=== PATIENT | female | born 1945 | race Caucasian/White ===

== ENCOUNTER 2020-10-10 13:00 | Outpatient (RCR) | payer MEDICARE, OTHER, SELFPAY | END 2020-11-04 10:51 | disposition home or self-care (01) | LOC: HO.PTCHIC 13:00 | PROVIDERS: PCP Nurse Practitioner Family; Visit Provider Orthopaedic Surgery | DX: Z47.1 Aftercare following joint replacement surgery (principal); Z96.651 Presence of right artificial knee joint | CPT/HCPCS: 97110; 97162 ==

== ENCOUNTER 2023-08-29 11:24 | Outpatient (AMB) | payer MEDICARE, OTHER, SELFPAY ==
--- NOTE | 2023-08-29 11:32 | AM.OFFWIN_ITS ---
Intake Vital Signs 08/29/23 11:33 Height 5 ft 1 in Weight 201 lb BMI 38.0 BP 112/72 Blood Pressure Location Lt brachial Position Sitting Pulse 62 Pulse Source Pulse Oximeter Pulse Oximetry (%) 98 Oxygen Delivery Method Room Air Intake Visit Reasons: EP LFT red itchy spot (lobby) Intake Note: Patient here for left rash below the knee which has been red and itchy for about 3 weeks. Patient Tobacco Use Status: Former Tobacco user Allergies No Known Allergies Allergy (Verified 08/29/23 11:34) Do you need a note to return to daycare/school/sports/work: No HPI HPI Comments History of Present Illness Details 78 y/o female patient who presents to [facility] with c/o Rash anterior left knee x 3 weeks. Reports that rash is very itchy with some pain. Denies any recent changes to cosmetic products, detergent, soap or diet. PFSH Social History Patient Tobacco Use Status: Former Tobacco user Physical Exam Vital Signs: Last Vital Signs Pulse 62 08/29/23 11:33 BP 112/72 08/29/23 11:33 Pulse Ox 98 08/29/23 11:33 Oxygen Delivery Method Room Air 08/29/23 11:33 BMI result Body Mass Index 38.0 Const General: comfortable and no acute distress Nutritional Appearance: obese Skin General skin exam: dry skin and erythema Rashes: rashes noted (plaque dry skin with red boarders left anterior knee) Assessment & Plan Assessment & Plan (1) Rash: Code(s): R21 - Rash and other nonspecific skin eruption Plan: DDX's: Eczema vs Psoriasis Will Start with high intense steroid cream for 2 weeks, then off F/U with Derm and PCP if not improved. Medications: New clobetasol 0.05% 1 appl topical BID 2 weeks 30 grams 0RF R21 - Rash and other nonspecific skin eruption Coding Level of Care Code Est Pt Level 3 (20732) Diagnoses Rash R21 Time Spent (min) 15
[2023-08-29 11:33] VITALS: BP 112/72; PULSE 62; O2SAT 98; BMI 38.0
== END 2023-08-29 14:22 | disposition home or self-care (01) ==
PROVIDERS: PCP Registered Nurse; Visit Provider Nurse Practitioner Family
DX: R21 Rash and other nonspecific skin eruption (principal)
CPT/HCPCS: 99213

== ENCOUNTER 2023-10-09 10:00 | Outpatient (RCR) | payer MEDICARE, OTHER, SELFPAY | END 2024-02-19 09:43 | disposition home or self-care (01) | LOC: HO.PTCHIC 10:00 | PROVIDERS: PCP Nurse Practitioner Family; Visit Provider Nurse Practitioner Family | DX: Z96.652 Presence of left artificial knee joint (principal) | CPT/HCPCS: 97110; 97116; 97162 ==

== ENCOUNTER 2023-11-14 12:37 | Outpatient (AMB) | payer MEDICARE, OTHER, SELFPAY ==
[2023-11-14 12:41] VITALS: BP 120/60; PULSE 74; TEMP 36.5; O2SAT 100; BMI 39.1
--- NOTE | 2023-11-14 12:41 | AM.OFFWIN_ITS ---
Intake Vital Signs 11/14/23 12:41 Height 5 ft 1 in Weight 207 lb BMI 39.1 BP 120/60 Blood Pressure Location Lt brachial Position Sitting Pulse 74 Pulse Source Pulse Oximeter Temp 97.7 F Temp Source Temporal Artery Scan Pulse Oximetry (%) 100 Oxygen Delivery Method Room Air Intake Visit Reasons: EST/ ear pain (lobby) Intake Note: pt is here today for ear pain started 1 month ago Patient Tobacco Use Status: Former Tobacco user Allergies No Known Allergies Allergy (Verified 11/14/23 12:47) Do you need a note to return to daycare/school/sports/work: No HPI HPI Comments History of Present Illness Details She presents with R ear pain Ongoing intermittent x 1 month When head is down on L side she gets some dizziness which improves when she lays on R She denies drainage to ear Pain now is 09/23 No fever or chills + congestion and nasal drip PFSH Social History Patient Tobacco Use Status: Former Tobacco user Review of Systems Const Denies chills, Denies fatigue, Denies fever(s) and Denies headache(s) Eyes Denies blurry vision ENT Reports dizziness, Denies ear discharge, Reports otalgia, Denies headache(s), Reports nasal congestion, Reports nasal discharge and Denies sore throat Card Denies chest pain and Denies syncope Resp Denies cough Neuro Reports dizziness, Denies syncope, Denies headache(s) and Denies paresthesias Endo Denies fatigue Physical Exam Vital Signs: Last Vital Signs Temp 97.7 F 11/14/23 12:41 Pulse 74 11/14/23 12:41 BP 120/60 11/14/23 12:41 Pulse Ox 100 11/14/23 12:41 Oxygen Delivery Method Room Air 11/14/23 12:41 BMI result Body Mass Index 39.1 General: Non-toxic, NAD. Speaking full sentences. Skin: Warm dry throughout Eye: EOMI HENT: + cerumen in R canal. Still able to see TM. L canal clear. TM non- erythematous, non-bulging. Slight fluid behind R TM. No TM perforation or hemotympanum noted. No mastoid tenderness Respiratory: No respiratory distress MSK: Full ROM extremities. Neurology: A/O. No aphasia or facial droop. Gait without abnormality Psych: Good mood and affect Office Procedures Cerumen Removal From which ear canal was the cerumen removed: right Removal: cerumen loop/spoon Notes: patient tolerated procedure well, no complications and ear canal clear 74812-[id number] Wax Removal by Spoon/Curette Assessment & Plan Assessment & Plan (1) Impacted cerumen of right ear: Code(s): H61.21 - Impacted cerumen, right ear Plan: see procedure Pt tolerated well and feeling better (2) Eustachian tube dysfunction: Code(s): H69.90 - Unspecified Eustachian tube disorder, unspecified ear Qualifiers: Laterality: right Qualified Code(s): H69.91 - Unspecified Eustachian tube disorder, right ear Plan: Patient seen and evaluated. nasal steroid F/U with PCP Patient gave verbal understanding and had no additional questions or concerns at time of discharge All questions answered Medications: New ipratropium bromide administer into each nostril 2 sprays intranasal TID 15 mL 0RF Coding Level of Care Code Est Pt Level 3 (04683) Diagnoses Impacted cerumen of right ear H61.21 Dysfunction of right eustachian tube H69.91 Laterality: right CPT Codes Office Procedure - CPT: 91330-Uym Wax Removal by Spoon/Curette ([id number])
== END 2023-11-14 14:07 | disposition home or self-care (01) ==
PROVIDERS: PCP Registered Nurse; Visit Provider Physician Assistant
DX: H61.21 Impacted cerumen, right ear (principal); H69.91 Unspecified Eustachian tube disorder, right ear
CPT/HCPCS: 69210; 99213

== ENCOUNTER 2025-06-01 08:28 | Outpatient (AMB) | payer MEDICARE, OTHER, SELFPAY ==
--- OUTSIDE RECORDS SUMMARY | 2025-05-30 23:59 | XMS_ITS | Continuity of Care Document ---
Author Organization [facility] Address [address] [place] [address] [address] [place] [address]- Care Team Providers Care Credit Historian Name Role Phone Dixie Shaw Primary Care Physician Encounter [facility] Date(s): 05/23/25 - 05/30/25 [facility] [address] [place] [address]- Attending Physician: Josefina Coats MD Referring Physician: Dixie Shaw Encounter Type: Office Visit Allergies, Adverse Reactions, Alerts Substance Criticality Severity Reaction Reaction Severity Status Latex rash Active Functional Status Functional Status Assessment Assessment Assessment Component Result Effecti ve Date Disability status [CUBS] I'm Thriving - no identified disability 05/23/25 Because of a physica l, mental, or emotional condition, do you have difficulty doing errands alone such as visiting a physician's office or shopping No 05/23/25 Are you deaf, or do you have serious difficulty hearing No 05/23/25 Difficulty communica ting in usual language No 05/23/25 Are you blind, or do you have serious difficulty seeing, even when wearing glasses No 05/23/25 Do you have serious difficulty walking or climbing stairs No 05/23/25 Do you need any angelica tional assistance or accommodations during your visit No 05/23/25 Do you have difficul ty dressing or bathing No 05/23/25 Difficulty Reading O r Writing No 05/23/25 Because of a physica l, mental, or emotional condition, do you have serious difficulty concentrating, remembering, or making decisions No 05/23/25 Immunizations Given and Recorded Vaccine Date Status Refusal Reason Zoster Vaccine Live 1 03/16/13 Given influenza virus vaccine, inactivated 2 02/10/12 Gi kevin influenza virus vaccine, inactivated 04/15/08 Give n pneumococcal 23-valent vaccine 3 02/10/12 Given FluLaval (oldterm) 05/14/10 Given Tet/Diphth/Acel, Pertussis (oldterm) 04/15/08 Give n 1Result Comment: [06/04/2013] Received at [facility] 2Admin Note: VIS Given Flulaval 3Admin Note: VIS GIVEN Medications acetaminophen 325 mg oral tablet 650 mg, By Mouth, Every 6 hours, may take OTC not to exceed 3000 mg/day, Refills 0, Maintenance, 06/05/23 7:03:00 AM EST, Partial fill upon patient request if the prescription is for a schedule II opioid drug. Start Date: 06/05/23 Status: Ordered Medication Dispense Status: Completed Total Allowed Fills: 1 Fills Dispensed: 0 amLODIPine 2.5 mg oral tablet 10 mg, By Mouth, Daily at bedtime, # 30 tablet, Refills 0, Maintenance, 04/18/20 8:10:00 AM EST Start Date: 04/18/20 Status: Ordered Medication Dispense Status: Completed Quantity: 30.0 Unit: tablet Total Allowed Fills: 1 Fills Dispensed: 0 Aspirin Tablet 325 mg, By Mouth, 2 times a day, Refills 0, Maintenance, 04/19/20 7:10:00 AM EST Start Date: 04/19/20 Status: Ordered Medication Dispense Status: Completed Total Allowed Fills: 1 Fills Dispensed: 0 Colace Capsule 100 mg, 1, capsule, By Mouth, 2 times a day, PRN, Refills 0, Maintenance, as needed for constipation, 04/19/20 7:10:00 AM EST Start Date: 04/19/20 Status: Ordered Medication Dispense Status: Completed Total Allowed Fills: 1 Fills Dispensed: 0 hydrochlorothiazide 25 mg oral tablet 1 tablet = 25 mg, By Mouth, Daily, # 90 tablet, 3 Refills, Maintenance, 02/18/13 1:26:26 PM EDT, Tablet, [facility]/pharmacy #[id number] Start Date: 02/18/13 Stop Date: 02/13/14 Status: Ordered Medication Dispense Status: Completed Quantity: 90.0 Unit: tablet Total Allowed Fills: 4 Fills Dispensed: 0 levothyroxine 0.05 mg oral tablet 1 tablet = 0.05 mg, By Mouth, Daily, # 90 tablet, 3 Refills, Maintenance, 08/29/13 9:59:00 AM EDT, [facility]/pharmacy #[id number] Start Date: 08/29/13 Stop Date: 08/24/14 Status: Ordered Medication Dispense Status: Completed Quantity: 90.0 Unit: tablet Total Allowed Fills: 4 Fills Dispensed: 0 lisinopril 20 mg oral tablet 1 tablet = 20 mg, By Mouth, Daily, for 90 days, # 90 tablet, 3 Refills, Hard Stop 11/09/15 1:35:08 PM EDT, 11/14/14 1:35:08 PM EDT, Tablet, [facility]/pharmacy #[id number] Start Date: 11/14/14 Stop Date: 11/09/15 Status: Ordered Medication Dispense Status: Completed Quantity: 90.0 Unit: tablet Total Allowed Fills: 4 Fills Dispensed: 0 pantoprazole 40 mg oral delayed release tablet = 40 mg, By Mouth, Daily, 0 Refills, Maintenance, 06/05/23 7:03:00 AM EST, [facility] Tablet Start Date: 06/05/23 Status: Ordered Medication Dispense Status: Completed Total Allowed Fills: 1 Fills Dispensed: 0 Problem List Condition Confirmation Course Effective Dates Status H ealth Status Informant Obesity (BMI 30-39.9) Confirmed Active Cataract Confirmed Active Chronic kidney disease Confirmed Active Childhood Thymus irradiation Confirmed Active H/O thyroid nodule Confirmed Active Hypertension Confirmed Active Hypothyroid Confirmed Active Impaired glucose tolerance 1 Confirmed Active Osteoarthritis of knee Confirmed Active PONV (postoperative nausea and vomiting) Confirmed Active Rosacea Confirmed Active Urinary incontinence Confirmed Active 1Past hemoglobin A1c was 5.7. On review of outside list of diagnoses that is imported she is reported as having diabetes, accuracy of this is indeterminate and she does not specifically endorse this. She reports she had lab work fairly recently and A1c was 5.7. We have obtained lab work today Vital Signs Most recent to oldest [Reference Range]: 1 Height 159 cm (05/23/25 8:24 AM) Weight 68.6 kg (05/23/25 8:24 AM) Pulse Rate [55-90 bpm] 74 bpm (05/23/25 8:24 AM) Body Mass Index [18.5-24.99 kg/m2] 27.14 kg/m2 *H* (05/23/25 8:24 AM) Blood Pressure [90-138/55-84 mm Hg] 131/ 73mm Hg (05/23/25 8:24 AM) Temperature [96.8-100.4 DegF] 97.8 DegF (05/23/25 8:24 AM) Blood pressure sites Arm, left (05/23/25 8:24 AM) Temperature Route Temporal (05/23/25 8:24 AM) Weight Obtained Via Standing scale (05/23/25 8:24 AM) Social History Social History Type Response Smoking Status Former smoker, quit more than 30 days ago entered on: 11/26/24 Sex Sex Representation Female (finding) Patient Care team information Care Team Personnel Name: Dixie Shaw Position: Reference Physician Member Role: PCP Address: [address] [place] [address] Internal Medicine [place], [place] [address] Telecom: Name: Brock Jaiems RN Position: S RN Member Role: Primary Care Nurse Name: Christiane Byrd RN Position: S RN Member Role: Primary Care Nurse Name: Vickie Lorenz RN Position: Raul PRUETT RN Member Role: Primary Care Nurse Name: Grady Pack RN Position: S RN Member Role: Primary Care Nurse Name: Flynn Mcmullen RN Position: S RN Member Role: Primary Care Nurse Care Team Related Persons Name: RADHA IZQUIERDO Insurance Providers Guarantor name: JAYDA IZQUIERDO Health Plan Information #: 1 Payer: MEDICARE B Payer Identifier: NA Member Number: [id number] Group Number: NA Subscriber Identifier: [id number] Relationship to Subscriber: self Coverage Type: NA Coverage Verification Date: NA Telecom: NA Address: Health Plan Information #: 2 Payer: ELIN MANTILLAIRENE LUIS Payer Identifier: NA Member Number: [id number] Group Number: NA Subscriber Identifier: [id number] Relationship to Subscriber: self Coverage Type: Medicare Other Coverage Verification Date: NA Telecom: NA Address:
--- OUTSIDE RECORDS SUMMARY | 2025-06-01 08:39 | XMS_ITS | Encounter Summary ---
Author Organization [facility] Address [address] [place] [address] Phone Care Team Providers Care Shift Commander Name Role Phone Rafiq Castle MD Primary Care Provider [phone] Natalie Palacio MD Unavailable [phone] Rafiq Castle MD Unavailable [phone] Scott Colón MD Unavailable [phone] Nneka Lay RECEIVING SPECIALIST Unavailable [phone] Heaven Roth RECEIVING SPECIALIST Unavailable [phone] Samian Reveles MD Unavailable [phone] Heaven Roth RECEIVING SPECIALIST Primary Care Provider Rafiq Castle MD Unavailable [phone] Rafiq Castle MD Unavailable [phone] Rafiq Castle MD Unavailable [phone] Rafiq Castle MD Unavailable [phone] Stacia Rodriguez HAND SANDER Primary Care Provider Dixie Ballard PA-C Primary Care Provider [phone] Encounter Details Date Type Department Care Team (Late st Contact Info) Description 04/05/2017 Ancillary Orders [facility] [address] [place] [address] Scott Colón MD [address], [address] [place] [address] Social History Tobacco Use Types Packs/Day Years Used Date Smoking Tobacco: Never Assessed Comments Unknown Sex and Gender Information Value Date Recorded Sex Assigned at Female 07/16/2019 8:53 AM EST Legal Sex Female 10:07 PM EDT Gender Identity Female 07/16/2019 8:53 AM EST Sexual Orientation Straight 07/16/2019 8: 53 AM EST documented as of this encounter Plan of Treatment Upcoming Encounters Date Type Department Care Team (Late st Contact Info) Description 06/14/2025 8:30 AM EST Procedure visit [facility] [address] [place] [address] Roro Sifuentes MD [address] [place] [address] Orthopedics & Sports Medicine, [place] [address] 07/11/2025 10:00 AM EST Office Visit [facility] [address] [place] [address] Jody Pollard PA-C [address] [place] [address] Orthopedics & Sports Medicine, [place] [address] [email or web address] 09/01/2025 11:20 AM EDT Office Visit [facility] [address] [place] [address] Dixie Ballard PA-C [address] [place] [address] 10/09/2025 9:15 AM EDT Appointment [facility] [address] [address] Dixie Ballard PA-C [address] [place] [address] documented as of this encounter Visit Diagnoses Not on filedocumented in this encounter Additional Health Concerns Infection Onset Date Last Indicated Resolved Time CoV-Exposed Comment:Recent close contact documented in the COVID-19 PCR/PRO order 09/18/2020 09/20/2020 10/03/2020 1:23 AM E DT CoV-Risk 03/13/2021 03/14/2021 03/23/2021 1:26 AM EDT documented as of this encounter Care Teams Shift Commander Relationship Specialty Start Date End Date Rafiq Castle MD [address] [place] [address] PCP - General 04/03/17 05/11/17 Heaven Roth NP [address] [place] [address] Orthopedics & Sports Medicine, [place] [address] PCP - General 05/12/17 08/19/23 Stacia Rodriguez FNP [address] [place] [address] [email or web address] PCP - General Nurse Practitioner 08/20/23 08/09/24 Dixie Ballard PA-C [address] [place] [address] PCP - General Physician Tech Ed Teacher 08/10/24 Natalie Palacio MD [address] [place] [address] Historical LMR Provider 04/03/17 12/29/19 Rafiq Catsle MD [address] [place] [address] Historical LMR Provider 04/03/17 12/29/19 Scott Colón MD [address], [address] [place] [address] Historical LMR Provider 04/03/17 12/29/19 Nneka Lay, PRICILLA [address] [facility] [address] [place] [address] Historical LMR Provider 04/03/17 12/29/19 Heaven Roth NP [address] [facility] [address] [place] [address] Historical LMR Provider 04/03/17 12/29/19 Samina Reveles MD [address] [place] [address] Orthopedics & Sports Medicine, [place] [address] Historical LMR Provider 04/03/17 12/29/19 Rafiq Castle MD [address] [place] [address] Insurance Assigned Provider 09/13/17 07/04/18 Rafiq Castle MD [address] [place] [address] Insurance Assigned Provider 09/26/18 10/17/18 Rafiq Castle MD [address] [place] [address] [email or web address] Insurance Assigned Provider 09/22/19 06/23/21 Rafiq Castle MD 40 [place] [address] Insurance Assigned Provider 09/20/23 06/21/24 documented as of this encounter Additional Source Comments The information contained in this document represents components of the legal health record. It is not the complete legal health record.[facility]
--- OUTSIDE RECORDS SUMMARY | 2025-06-01 08:39 | XMS_ITS | Encounter Summary ---
Author Organization [facility] Address [address] [place] [address] Phone Care Team Providers Care Street Photographer Name Role Phone Heaven Roth NP Primary Care Provider [phone] Rafiq Castle MD Unavailable [phone] Stacia RodriguezP Primary Care Provider [phone] Dixie Ballard PA-C Primary Care Provider [phone] Encounter Details Date Type Department Care Team (Late st Contact Info) Description 09/27/2022 Procedure Pass [facility] - [address] [place] [address] Social History Tobacco Use Types Packs/Day Years Used Date Smoking Tobacco: Former Cigarettes 0.5 20 1 06/16/1983 - 04/16/2004 Smokeless Tobacco: Never Alcohol Use Standard Drinks/Week Comments Yes 0 (1 standard drink = 0.6 oz pur e alcohol) 1-2 drinks, monthly or less Comments No Sex and Gender Information Value Date Recorded Sex Assigned at Female 07/16/2019 8:53 AM EST Legal Sex Female 10:07 PM EDT Gender Identity Female 07/16/2019 8:53 AM EST Sexual Orientation Straight 07/16/2019 8: 53 AM EST documented as of this encounter Plan of Treatment Upcoming Encounters Date Type Department Care Team (Late st Contact Info) Description 06/14/2025 8:30 AM EST Procedure visit [facility] [address] [place] [address] Roro Sifuentes MD [address] [facility] Orthopedics & Sports Medicine, [place] [address] 07/11/2025 10:00 AM EST Office Visit [facility] [address] [place] [address] Jody Pollard PA-C [address] [place] [address] Orthopedics & Sports Medicine, [place] [address] [email or web address] 09/01/2025 11:20 AM EDT Office Visit [facility] [address] [place] [address] Dixie Ballard PA-C 40 [place] [address] 10/09/2025 9:15 AM EDT Appointment [facility], Bone [address] [address] Dixie Ballard PA-C [address] [place] [address] documented as of this encounter Visit Diagnoses Not on filedocumented in this encounter Additional Health Concerns Assessment Noted Time PHQ-2 Depression Total Score: 2 04/29/20 22 9:25 PM EST documented as of this encounter Care Teams Street Photographer Relationship Specialty Start Date End Date Heaven Roth NP PCP - General 05/12/17 08/19/23 Stacia Rodriguez FNP [address] [address] PCP - General Nurse Practitioner 08/20/23 08/09/24 Dixie Ballard PA-C [address] [place] [address] PCP - General Physician Video Library Assistant 08/10/24 Rafiq Castle MD [address] [place] [address] [email or web address] Insurance Assigned Provider 09/20/23 06/21/24 documented as of this encounter Additional Source Comments The information contained in this document represents components of the legal health record. It is not the complete legal health record.[facility]
--- OUTSIDE RECORDS SUMMARY | 2025-06-01 08:39 | XMS_ITS | Encounter Summary ---
Author Organization [facility] Address [address] [place] [address] [place] [address] Phone Care Team Providers Care Division Service Manager Name Role Phone Natalie Palacio MD Unavailable Rafiq Castle MD Unavailable Scott Colón MD Unavailable [phone] Nneka Lay MANUFACTURING SUPERVISOR 2ND SHIFT Unavailable Heaven Roth MANUFACTURING SUPERVISOR 2ND SHIFT Unavailable [phone] Samina Reveles MD Unavailable Heaven Roth MANUFACTURING SUPERVISOR 2ND SHIFT Primary Care Provider Rafiq Castle MD Unavailable [phone] Rafiq Castle MD Unavailable [phone] Rafiq Castle MD Unavailable [phone] Rafiq Castle MD Unavailable [phone] Stacia Rodriguez CAREER COORDINATOR Primary Care Provider Dixie Ballard PA-C Primary Care Provider Encounter Details Date Type Department Care Team (Late st Contact Info) Description 06/23/2017 Ancillary Orders [facility] [address] [place] [address] Heaven Roth, MANUFACTURING SUPERVISOR 2ND SHIFT [address] [facility] [address] [place] [address] Breast screening Social History Tobacco Use Types Packs/Day Years Used Date Smoking Tobacco: Former Cigarettes 0.5 20 1 06/16/1983 - 04/16/2004 Smokeless Tobacco: Never Alcohol Use Standard Drinks/Week Comments Yes 0 (1 standard drink = 0.6 oz pur e alcohol) rarely Comments Unknown Sex and Gender Information Value [...] Description 06/14/2025 8:30 AM EST Procedure visit [facility] [address] [place] [address] Roro Sifuentes MD [address] [place] [address] Orthopedics & Sports Medicine, [place] [address] 07/11/2025 10:00 AM EST Office Visit [facility] [address] [address] Jody Pollard PA-C [address] [place] [address] Orthopedics & Sports Medicine, [place] [address] [email or web address] 09/01/2025 11:20 AM EDT Office Visit [facility] [address] [place] [address] Dixie Ballard PA-C [address] [place] [address] 10/09/2025 9:15 AM EDT Appointment [facility], Bone Density - [address] [address] Dixie Ballard PA-C [address] [place] [address] [email or web address] documented as of this encounter Results * BI MAMMOGRAM SCREENING WITH TOMOSYNTHESIS WITH CAD (BILATERAL) (07/17/2017 9:41 AM EST) Anatomical Region Laterality Modality Breast Left, Breast Right, Breast Bilateral Bila teral Mammography 07/17/2017 12:3 8 PM EST Impressions 07/17/2017 12:48 PM EST No mammographic signs of malignancy. Annual screening is recommended. BI-RADS CATEGORY: 2 - Benign finding. DENSITY: There are scattered fibroglandular densities. POS - CDHMAMA Narrative 07/17/2017 12:48 PM EST Bilateral mammography is performed in conjunction with computed aided detection. 3-D tomography along with 2-D C view imaging was also performed. Comparison made to previous dated as far back as 04/17/2011 and as recent as 06/03/2016. No suspicious masses, areas of architectural distortion or suspicious microcalcifications. Scattered bilateral microcalcifications appear stable. These include bilateral benign secretory calcifications. Procedure Note Darell Kennedy MD - 07/17/2017 Bilateral mammography is performed in conjunction with computed aideddetection. 3-D tomography along with 2-D C view imaging was alsoperformed. Comparison made to previous dated as far back as 04/17/2011 andas recent as 06/03/2016. No suspicious masses, areas of architectural distortion or suspiciousmicrocalcifications. Scattered bilateral microcalcifications appearstable. These include bilateral benign secretory calcifications. IMPRESSION: No mammographic signs of malignancy. Annual screening is recommended. BI-RADS CATEGORY: 2 - Benign finding. DENSITY: There are scattered fibroglandular densities. POS - CDHMAMA us Heaven Roth NP IMG MG EXAMS Final Result documented in this encounter Visit Diagnoses Diagnosis Breast screening Breast screening, unspecified Breast screening Breast screening, unspecified documented in this encounter Additional Health Concerns Infection Onset Date Last Indicated Resolved Time CoV-Exposed Comment:Recent close contact documented in the COVID-19 PCR/PRO order 09/18/2020 09/20/2020 10/03/2020 1:23 AM E DT CoV-Risk 03/13/2021 03/14/2021 03/23/2021 1:26 AM EDT Assessment Noted Time PHQ-2 Depression Total Score: 0 05/15/20 8:41 AM EST documented as of this encounter Care Teams Division Service Manager Relationship Specialty Start Date End Date Heaven Roth, MANUFACTURING SUPERVISOR 2ND SHIFT [address] [place] [address] Orth[facility]ics [facility] Sports Medicine, [place] [address] PCP - General 05/12/17 08/19/23 Stacia Rodriguez FNP 15 [facility] [address] [place] [address] PCP - General Nurse Practitioner 08/20/23 08/09/24 Dixie Ballard PA-C [address] [place] [address] PCP - General Physician Home Delivery Driver 08/10/24 Natalie Palacio MD [address] [place] [address] Historical LMR Provider 04/03/17 12/29/19 Rafiq Castle MD [address] [place] [address] Historical LMR Provider 04/03/17 12/29/19 Scott Colón MD [address] [place] [address], [address] [place] [address] Historical LMR Provider 04/03/17 12/29/19 Nneka Lay NP [address] [place] [address] [address] [place] [address] Historical LMR Provider 04/03/17 12/29/19 Heaven Roth NP [address] [place] [address] [address] [place] [address] Historical LMR Provider 04/03/17 12/29/19 Samina Reveles MD [address] [place] [address] Orthopedics & Sports Medicine, [place] [address] Historical LMR Provider 04/03/17 12/29/19 Rafiq Castle MD [address] [place] [address] Insurance Assigned Provider 09/13/17 07/04/18 Rafiq Castle MD [address] [place] [address] Insurance Assigned Provider 09/26/18 10/17/18 Rafiq Castle MD [address] [place] [address] Insurance Assigned Provider 09/22/19 06/23/21 Rafiq Castle MD [address] [place] [address] [email or web address] Insurance Assigned Provider 09/20/23 06/21/24 documented as of this encounter Additional Source Comments The information contained in this document represents components of the legal health record. It is not the complete legal health record.[facility]
--- OUTSIDE RECORDS SUMMARY | 2025-06-01 08:39 | XMS_ITS | Encounter Summary ---
Author Organization [facility] Address [address] [place] [address] Phone Care Team Providers Care Forest Ecology Professor Name Role Phone Rafiq Castle MD Primary Care Provider [phone] Natalie Palacio MD Unavailable [phone] Rafiq Castle MD Unavailable [phone] Scott Colón MD Unavailable [phone] Nneka Lay INSERTING PRESS OPERATOR Unavailable [phone] Heaven Roth INSERTING PRESS OPERATOR Unavailable [phone] Samina Reveles MD Unavailable [phone] Heaven Roth INSERTING PRESS OPERATOR Primary Care Provider [phone] Rafiq Castle MD Unavailable [phone] Rafiq Castle MD Unavailable [phone] Rafiq Castle MD Unavailable [phone] Rafiq Castle MD Unavailable [phone] Stacia Rodriguez BUSINESS PROJECT ANALYST Primary Care Provider [phone] Dixie Ballard PA-C Primary Care Provider [phone] Encounter Details Date Type Department Care Team (Latest Contact Info) Description 04/05/2017 Ancillary Orders [facility] [address] [place], [place] [id number] Scott Colón MD 22 [facility], [address] [place] [address] [email or web address] Varicose veins of both lower extremities with complications Social History Tobacco Use Types Packs/Day Years [...] Description 06/14/2025 8:30 AM EST Procedure visit [facility] [address] [place] [address] Roro Sifuentes MD [address] [place] [address] Orthopedics & Sports Medicine, [place] [address] 07/11/2025 10:00 AM EST Office Visit [facility] [address] [address] Jody Pollard PA-C [address] [place] [address] Orthopedics & Sports Medicine, [place] [address] [email or web address] 09/01/2025 11:20 AM EDT Office Visit [facility] 40 [place] [address] Dixie Ballard PA-C [address] [place] [address] 10/09/2025 9:15 AM EDT Appointment [facility], Bone Density - [address] [address] Dixie Ballard PA-C [address] [place] [address] [email or web address] documented as of this encounter Results * US Lower Extremity Veins Reflux Evaluation (Bilateral) (06/26/2017 12:00 PM EST) Anatomical Region Laterality Modality Ultrasound Narrative 06/27/2017 3:10 PM EST See scanned report. us Scott Colón MD CV US VASCULAR Final Resul t documented in this encounter Visit Diagnoses Diagnosis Varicose veins of both lower extremities with complications documented in this encounter Additional Health Concerns Infection Onset Date Last Indicated Resolved Time CoV-Exposed Comment:Recent close contact documented in the COVID-19 PCR/PRO order 09/18/2020 09/20/2020 10/03/2020 1:23 AM E DT CoV-Risk 03/13/2021 03/14/2021 03/23/2021 1:26 AM EDT documented as of this encounter Care Teams Forest Ecology Professor Relationship Specialty Start Date End Date Rafiq Castle MD [address] [place] [address] PCP - General 04/03/17 05/11/17 Heaven Roth INSERTING PRESS OPERATOR [address] [place] [address] Orthopedics & Sports Medicine, [place] [address] PCP - General 05/12/17 08/19/23 Stacia Rodriguez FNP [address] [address] PCP - General Nurse Practitioner 08/20/23 08/09/24 Dixie Ballard PA-C [address] [place] [address] PCP - General Physician Biomedical Instrument Technician 08/10/24 Natalie Palacio MD [address] [place] [address] Historical LMR Provider 04/03/17 12/29/19 Rafiq Castle MD [address] [place] [address] Historical LMR Provider 04/03/17 12/29/19 Scott Colón MD 22 [facility] 301 [place] [address] Historical LMR Provider 04/03/17 12/29/19 Nneka Lay NP [address] [place] [address] [address] [place] [address] Historical LMR Provider 04/03/17 12/29/19 Heaven Roth NP [address] [place] [address] 6 [place] [address] Historical LMR Provider 04/03/17 12/29/19 Samina Reveles MD [address] [place] [address] Orthopedics & Sports Medicine, [place] [address] Historical LMR Provider 04/03/17 12/29/19 Rafiq Castle MD [address] [place] [address] [email or web address] Insurance Assigned Provider 09/13/17 07/04/18 Rafiq Castle MD [address] [place] [address] [email or web address] Insurance Assigned Provider 09/26/18 10/17/18 Rafiq Castle MD [address] [place] [address] [email or web address] Insurance Assigned Provider 09/22/19 06/23/21 Rafiq Castle MD [address] [place] [address] Insurance Assigned Provider 09/20/23 06/21/24 documented as of this encounter Additional Source Comments The information contained in this document represents components of the legal health record. It is not the complete legal health record.[facility]
--- OUTSIDE RECORDS SUMMARY | 2025-06-01 08:39 | XMS_ITS | Encounter Summary ---
Author Organization [facility] Address [address] [facility] [address] [place] [address] Phone Care Team Providers Care Clamp Jig Assembler Name Role Phone Rafiq Castle MD Unavailable [phone] Stacia Rodriguez Primary Care Provider [phone] Dixie Ballard PA-C Primary Care Provider [phone] Encounter Details Date Type Department Care Team (Late st Contact Info) Description 02/18/2024 Procedure Pass [facility] - [address] [place] [address] Social History Tobacco Use Types Packs/Day Years Used Date Smoking Tobacco: Former Cigarettes 0.5 20 1 06/16/1983 - 04/16/2004 Smokeless Tobacco: Never Alcohol Use Standard Drinks/Week Comments Not Currently 0 (1 standard drink = 0.6 oz pur e alcohol) 1-2 drinks, monthly or less Child or Family Care Answer Date Record ed Do you have problems with on e of the following making it difficult for you to work, study, or receive health care? No 08/08/2023 Education Answer Date Recorded Are you interested in more education? Not on susie e 10/11/2022 Are you concerned about learning? Not on file 10/11/2022 No 10/11/2022 No 10/11/2022 Food Answer Date Recorded Within the past 6 months we worried whether our food would run out before we got money to buy more. Never True 08/08/2023 Within the past 6 months the food we bought just didn't last and we didn't have enough money to get more. Never True Residential Stability Answer Date Recor ded What is your housing situation today? I have anjali goldman 08/08/2023 How many times have you move d in the past 12 months? Zero (I did not move) 08/08/2023 Paying for Meds Answer Date Recorded Do you have trouble paying for medicines? No 08/08/2023 Paying Utility Bills Answer Date Record ed Do you have trouble paying your heating or elect ricity bill? No 08/08/2023 Transportation Answer Date Recorded Has the lack of transportati on kept you from medical appointments or from getting medications? No 08/08/2023 Digital Access Answer Date Recorded No 08/08/2023 Yes 08/08/2023 Do you have reliable internet access at home? Ye s 08/08/2023 Do you have a device (e.g., phone, tablet, computer) with a working camera? Yes 08/08/2023 Comments No Sex and Gender Information Value [...] Description 06/14/2025 8:30 AM EST Procedure visit [facility] [address] [place] [address] Roro Sifuentes MD [address] [place] [address] Orthopedics & Sports Medicine, [place] [address] 07/11/2025 10:00 AM EST Office Visit [facility] [address] [place] [address] Jody Pollard PA-C [address] [place] [address] Orthopedics & Sports Medicine, [place] [address] [email or web address] 09/01/2025 11:20 AM EDT Office Visit [facility] 40 [place], [place] [phone] Dixie Ballard PA-C 40 [place] [address] 10/09/2025 9:15 AM EDT Appointment [facility], Bone Density [address] [address] Dixie Ballard PA-C 40 [place] [address] documented as of this encounter Visit Diagnoses Not on filedocumented in this encounter Additional Health Concerns Assessment Noted Time PHQ-2 Depression Total Score: 0 02/20/20 1:44 PM EDT documented as of this encounter Care Teams Clamp Jig Assembler Relationship Specialty Start Date End Date Stacia Rodriguez FNP [address] [address] PCP - General Nurse Practitioner 08/20/23 08/09/24 Dixie Ballard PA-C [address] [place] [address] PCP - General Physician Health And Human Performance Professor 08/10/24 Rafiq Castle MD [address] [place] [address] Insurance Assigned Provider 09/20/23 06/21/24 documented as of this encounter Additional Source Comments The information contained in this document represents components of the legal health record. It is not the complete legal health record.[facility]
--- OUTSIDE RECORDS SUMMARY | 2025-06-01 08:39 | XMS_ITS | Encounter Summary ---
Author Organization [facility] Address [address] [place] [address] [address] [place] [address] Phone Care Team Providers Care Kitman Name Role Phone Natalie Palacio MD Unavailable Rafiq Castle MD Unavailable Scott Colón MD Unavailable Nneka Lay [facility] Unavailable Heaven Roth [facility] Unavailable [phone] Samina Reveles MD Unavailable Heaven Roth [facility] Primary Care Provider Rafiq Castle MD Unavailable [phone] Rafiq Castle MD Unavailable [phone] Rafiq Castle MD Unavailable [phone] Rafiq Castle MD Unavailable [phone] MAINTAINER Primary Care Provider [phone] Dixie Ballard PA-C Primary Care Provider Encounter Details Date Type Department Care Team (Latest Contact Info) Description 09/10/2017 Ancillary Orders [facility] [address] [place] [address] Scott Colón MD 22 [facility], [address] [place] [address] [email or web address] Venous insufficiency Social History Tobacco Use Types Packs/Day Years Used Date Smoking Tobacco: Former Cigarettes 0.5 20 1 06/16/1983 - 04/16/2004 Smokeless Tobacco: Never Alcohol Use Standard Drinks/Week Comments Yes 0 (1 standard drink = 0.6 oz pur e alcohol) rarely Comments No Sex and Gender Information Value [...] Description 06/14/2025 8:30 AM EST Procedure visit [facility] [address] [place] [address] Roro Sifuentes MD [address] [place] [address] Orthopedics & Sports Medicine, [place] [address] 07/11/2025 10:00 AM EST Office Visit [facility] [address] [place] [address] Jody Pollard PA-C [address] [place] [address] Orthopedics & Sports Medicine, [place] [address] [email or web address] 09/01/2025 11:20 AM EDT Office Visit [facility] [address] [place] [address] Dixie Ballard PA-C [address] [place] [address] 10/09/2025 9:15 AM EDT Appointment [facility], Bone Density - [address] [address] Dixie Ballard PA-C [address] [place] [address] [email or web address] documented as of this encounter Results * US Lower Extremity Veins Duplex (Right) (12/10/2017 9:57 AM EDT) Anatomical Region Laterality Modality Hip Right, Thigh Right, Knee Right, Leg Right, Ankle Right, Foot Right Ultrasound Narrative 12/12/2017 8:31 AM EDT See scanned document. Scott Colón MD CV US VASCULAR Final Resul t * US Lower Extremity Veins Duplex (Right) (10/02/2017 12:17 PM EDT) Anatomical Region Laterality Modality Hip Right, Thigh Right, Knee Right, Leg Right, Ankle Right, Foot Right Ultrasound Narrative 10/06/2017 8:31 AM EDT Please see scanned document Scott Colón MD CV VASCULAR Final Resul t documented in this encounter Visit Diagnoses Diagnosis Venous insufficiency Unspecified venous (peripheral) insufficiency Venous insufficiency Unspecified venous (peripheral) insufficiency Venous insufficiency Unspecified venous (peripheral) insufficiency documented in this encounter Additional Health Concerns Infection Onset Date Last Indicated Resolved Time CoV-Exposed Comment:Recent close contact documented in the COVID-19 PCR/PRO order 09/18/2020 09/20/2020 10/03/2020 1:23 AM E DT CoV-Risk 03/13/2021 03/14/2021 03/23/2021 1:26 AM EDT Assessment Noted Time PHQ-2 Depression Total Score: 0 05/15/20 17 8:41 AM EST documented as of this encounter Care Teams Kitman Relationship Specialty Start Date End Date Heaven Roth NP [address] [place] [address] Orthopedics & Sports Medicine, [facility] [place] [place] [address] [email or web address] PCP - General 05/12/17 08/19/23 Stacia Rodriguez FNP [address] [facility] [address] [place] [address] PCP - General Nurse Practitioner 08/20/23 08/09/24 Dixie Ballard PA-C 40 [place] [address] PCP - General Physician Stock Sheets Cleaner Inspector 08/10/24 Natalie Palacio MD [address] [place] [address] Historical LMR Provider 04/03/17 12/29/19 Rafiq Castle MD [address] [place] [address] Historical LMR Provider 04/03/17 12/29/19 Scott Colón MD [address] [facility], [address] [place] [address] Historical LMR Provider 04/03/17 12/29/19 Nneka Lay, PRICILLA [address] [facility] [address] [place] [address] Historical LMR Provider 04/03/17 12/29/19 Heaven Roth NP 26 [facility] 6 [place] [address] Historical LMR Provider 04/03/17 12/29/19 Samina Reveles MD [address] [place] [address] Orthopedics & Sports Medicine, [facility] [place] [place] [address] [email or web address] Historical LMR Provider 04/03/17 12/29/19 Rafiq Castle MD [address] [place] [address] [email or web address] Insurance Assigned Provider 09/13/17 07/04/18 Rafiq Castle MD [address] [place] [address] [email or web address] Insurance Assigned Provider 09/26/18 10/17/18 Rafiq Castle MD [address] [place] [address] [email or web address] Insurance Assigned Provider 09/22/19 06/23/21 Rafiq Castle MD [address] [place] [address] [email or web address] Insurance Assigned Provider 09/20/23 06/21/24 documented as of this encounter Additional Source Comments The information contained in this document represents components of the legal health record. It is not the complete legal health record.[facility]
--- OUTSIDE RECORDS SUMMARY | 2025-06-01 08:39 | XMS_ITS | Encounter Summary ---
Author Organization Located Within [facility] Address [address] [place] [address] Phone Care Team Providers Care Systems Consultant Name Role Phone Rafiq Castle MD Primary Care Provider [phone] Natalie Palacio MD Unavailable [phone] Rafiq Castle MD Unavailable [phone] Scott Colón MD Unavailable [phone] Nneka Lay RECEIVING CHECKER Unavailable [phone] Heaven Roth RECEIVING CHECKER Unavailable [phone] Samina Reveles MD Unavailable [phone] Heaven Roth RECEIVING CHECKER Primary Care Provider Rafiq Castle MD Unavailable [phone] Rafiq Castle MD Unavailable [phone] Rafiq Castle MD Unavailable [phone] Rafiq Castle MD Unavailable [phone] Stacia Rodriguez STRATEGIC ACCOUNTS MANAGER Primary Care Provider [phone] Dixie Ballard PA-C Primary Care Provider [phone] Encounter Details Date Type Department Care Team (Late st Contact Info) Description 04/05/2017 Ancillary Orders Located [facility] Cardiology Clinic [address] [place] [address] Scott Colón MD 22 [facility], [address] [place] [address] Social History Tobacco Use Types Packs/Day Years [...] Description 06/14/2025 8:30 AM EST Procedure visit [facility] [address] [place] [address] Roro Sifuentes MD [address] [place] [address] Orthopedics & Sports Medicine, [place] [address] 07/11/2025 10:00 AM EST Office Visit Loc[facility] [address] [place] [address] Jody Pollard PA-C [address] [place] [address] Orthopedics & Sports Medicine, [place] [address] [email or web address] 09/01/2025 11:20 AM EDT Office Visit Located [facility] Primary Care Clinic [address] [place] [address] Dixie Ballard PA-C 40 [place] [address] 10/09/2025 9:15 AM EDT Appointment [facility], Bone Density [address] [address] Dixie Ballard PA-C 40 [place] [address] documented as of this encounter Visit Diagnoses Not on filedocumented in this encounter Additional Health Concerns Infection Onset Date Last Indicated Resolved Time CoV-Exposed Comment:Recent close contact documented in the COVID-19 PCR/PRO order 09/18/2020 09/20/2020 10/03/2020 1:23 AM E DT CoV-Risk 03/13/2021 03/14/2021 03/23/2021 1:26 AM EDT documented as of this encounter Care Teams Systems Consultant Relationship Specialty Start Date End Date Rafiq Castle MD [address] [place] [address] PCP - General 04/03/17 05/11/17 Heaven Roth NP [address] [place] [address] Orthopedics & Sports Medicine, [place] [address] PCP - General 05/12/17 08/19/23 Stacia Rodriguez FNP [address] [place] [address] [email or web address] PCP - General Nurse Practitioner 08/20/23 08/09/24 Dixie Ballard PA-C [address] [place] [address] PCP - General Physician Child Care Supervisor 08/10/24 Natalie Palacio MD [address] [place] [address] Historical LMR Provider 04/03/17 12/29/19 Rafiq Castle MD 40 [place] [address] Historical LMR Provider 04/03/17 12/29/19 Scott Colón MD 22 [facility], [address] [place] [address] Historical LMR Provider 04/03/17 12/29/19 Nneka Lay, PRICILLA 21 [facility] [address] [place] [address] Historical LMR Provider 04/03/17 12/29/19 Heaven Roth NP 26 [facility] 6 [place] [address] Historical LMR Provider 04/03/17 12/29/19 Samina Reveles MD [address] [place] [address] Orthopedics & Sports Medicine, [place] [address] Historical LMR Provider 04/03/17 12/29/19 Rafiq Castle MD [address] [place] [address] Insurance Assigned Provider 09/13/17 07/04/18 Rafiq Castle MD [address] [place] [address] Insurance Assigned Provider 09/26/18 10/17/18 Rafiq Castle MD 40 [place] [address] [email or web address] Insurance Assigned Provider 09/22/19 06/23/21 Rafiq Castle MD 40 [place] [address] Insurance Assigned Provider 09/20/23 06/21/24 documented as of this encounter Additional Source Comments The information contained in this document represents components of the legal health record. It is not the complete legal health record.[facility]
[2025-06-01 08:40] VITALS: BP 142/50; PULSE 78; TEMP 36.6; O2SAT 96; BMI 26.2
--- NOTE | 2025-06-01 08:40 | MHC.OFFWIV ---
Intake Vital Signs 06/01/25 08:40 Height 5 ft 3 in Weight 148 lb BMI 26.2 BP 142/50 H Blood Pressure Location Rt brachial Position Sitting Pulse 78 Pulse Source Pulse Oximeter Temp 97.9 F Temp Source Oral Pulse Oximetry (%) 96 Oxygen Delivery Method Room Air Intake Visit Reasons: EP cough congestion mucus Intake Note: Patient presents c/o cough, headache, chills, chest congestion x1 week. Patient Tobacco Use Status: Former Tobacco user Allergies No Known Allergies Allergy (Verified 06/01/25 08:41) HPI HPI Comments History of Present Illness Details Patient is a 80yo F who presents with cough, loss of voice Ongoing x 1 week sick as well + sore throat, congestion, headache + cough with phlegm No wheeze or SOB Tried Nyquil and tylenol which helps She said decreased energy. Appetite okay No vomiting or diarrhea No fevers but + subjective chills No body aches Had flu vaccine 1 month ago PFSH Social History (System 10/20/24 @ 12:56 by Annette Lozano) Patient Tobacco Use Status: Former Tobacco user Review of Systems Const Reports chills, Reports fatigue, Denies fever(s) and Reports headache(s) Eyes Denies blurry vision and Denies change in vision ENT Denies otalgia, Reports headache(s), Reports nasal congestion, Reports sore throat, Denies throat swelling and Denies tongue swelling Card Denies chest pain, Denies syncope, Denies dyspnea and Denies dyspnea on exertion Resp Reports cough, Denies dyspnea, Denies dyspnea on exertion and Denies wheezing GI Denies abdominal pain, Denies diarrhea and Denies vomiting Musc Denies myalgias Neuro Denies syncope and Reports headache(s) Endo Reports fatigue Aller/Immun Denies throat swelling, Denies tongue swelling and Denies wheezing Physical Exam Exam Exam: General: Non-toxic, NAD. Speaking full sentences. Skin: Warm dry throughout Eye: EOMI HENT: Airway patent. Uvula midline. No pharyngeal erythema or edema. No FARMWORKER DIVERSIFIED CROPS. Bilateral canals have small amount of cerumen bilaterally. TM non-erythematous, non-bulging. No TM perforation or hemotympanum noted. Respiratory: CTA bilaterally. No wheezes, rales or rhonchi Cardiac: RRR. No murmur MSK: Full ROM extremities. Neurology: Alert. No aphasia or facial droop. Gait without abnormality Psych: Good mood and affect Vital Signs: Last Vital Signs Temp 97.9 F 06/01/25 08:40 Pulse 78 06/01/25 08:40 BP 142/50 H 06/01/25 08:40 Pulse Ox 96 06/01/25 08:40 Oxygen Delivery Method Room Air 06/01/25 08:40 BMI result Body Mass Index 26.2 Assessment & Plan Assessment & Plan (1) Upper respiratory infection: Code(s): J06.9 - Acute upper respiratory infection, unspecified Qualifiers: URI type: unspecified viral URI Qualified Code(s): J06.9 - Acute upper respiratory infection, unspecified Plan: Patient seen and evaluated. Lungs CTA Outside timeframe for COVID/Flu testing and pt is afebrile Tessalon for cough Patient and gave verbal understanding and had no additional questions or concerns at time of discharge All questions answered 11:22am Close contact + on radiology for PNA. Will cover pt and advised if symptoms continual or worse, come back for evaluation and chest xray. Will cover with single coverage Doxy. (2) Pneumonia exposure: Code(s): Z20.89 - Contact with and (suspected) exposure to other communicable diseases Plan: see plan above Medications: New benzonatate 100 mg PO BID-TID PRN 14 caps 0RF cough doxycycline hyclate 100 mg PO BID 14 caps 0RF Coding Level of Care Code Est Pt Level 3 (11671) Diagnoses Viral upper respiratory tract infection J06.9 URI type: unspecified viral URI Pneumonia exposure Z20.89
--- OUTSIDE RECORDS SUMMARY | 2025-06-01 08:40 | XMS_ITS | Encounter Summary ---
Author Organization [facility] Address [address] [place] [address] [place] [address] Phone Care Team Providers Care Wooden Furniture Polisher Name Role Phone Heaven Roth NP Primary Care Provider [phone] Rafiq Castle MD Unavailable [phone] Stacia RodriguezP Primary Care Provider [phone] Dixie Ballard PA-C Primary Care Provider Encounter Details Date Type Department Care Team (Late st Contact Info) Description 09/27/2022 Transcribe Orders Virtual Department 30 [place] [address] Heaven Roth NP 26 [facility] 6 [place] [address] [email or web address] Breast screening (Primary Dx) Social History Tobacco Use Types Packs/Day Years [...] Description 06/14/2025 8:30 AM EST Procedure visit [facility] [address] [place] [address] Roro Sifuentes MD [address] [place] [address] Orthopedics & Sports [facility] [place], [place], [place] [id number] 07/11/2025 10:00 AM EST Office Visit [facility] [address] [address] Jody Pollard PA-C [address] [place] [address] Orthopedics & Sports [facility] [place], [place] [address] [email or web address] 09/01/2025 11:20 AM EDT Office Visit [facility] Primary Care Clinic 40 [place] [address] Dixie Ballard PA-C 40 [place], [place] [phone] 10/09/2025 9:15 AM EDT Appointment [facility], Bone Density - [address] [address] Dixie Ballard PA-C [address] [place] [address] documented as of this encounter Results * BI MAMMOGRAM SCREENING WITH TOMOSYNTHESIS WITH CAD (BILATERAL) (11/26/2022 9:24 AM EDT) Anatomical Region Laterality Modality Breast Left, Breast Right, Breast Bilateral Bila teral Mammography 11/28/2022 12:0 4 PM EDT Impressions 11/28/2022 12:07 PM EDT No findings suspicious for malignancy. In the absence of a worrisome palpable abnormality, annual screening mammography is recommended. BI-RADS CATEGORY: 2 - Benign finding. DENSITY: There are scattered fibroglandular densities. Narrative 11/28/2022 12:07 PM EDT AVAILABLE COMPARISON: 11/20/2021 through 04/03/2010. Bilateral 3-D tomosynthesis with 2-D reconstructions in the CC and MLO projection. Computer-aided detection system also utilized. No new mass, asymmetry, architectural distortion or suspicious calcifications have become apparent in either breast. Chronic bilateral benign calcifications and scattered asymmetric densities all seem stable. Procedure Note Ramon Qureshi MD - 11/28/2022 AVAILABLE COMPARISON: 11/20/2021 through 04/03/2010. Bilateral 3-D tomosynthesis with 2-D reconstructions in the CC and MLOprojection. Computer-aided detection system also utilized. No new mass, asymmetry, architectural distortion or suspiciouscalcifications have become apparent in either breast. Chronic bilateral benign calcifications and scattered asymmetricdensities all seem stable. IMPRESSION: No findings suspicious for malignancy. In the absence of a worrisomepalpable abnormality, annual screening mammography is recommended. BI-RADS CATEGORY: 2 - Benign finding. DENSITY: There are scattered fibroglandular densities. us Heaven Roth NP IMG MG EXAMS Final Result documented in this encounter Visit Diagnoses Diagnosis Breast screening- Primary Breast screening, unspecified Breast screening Breast screening, unspecified documented in this encounter Additional Health Concerns Assessment Noted Time PHQ-2 Depression Total Score: 2 04/29/20 22 9:25 PM EST documented as of this encounter Care Teams Wooden Furniture Polisher Relationship Specialty Start Date End Date Heaven Roth NP PCP - General 05/12/17 08/19/23 Stacia Rodriguez FNP [address] [place] [address] [email or web address] PCP - General Nurse Practitioner 08/20/23 08/09/24 Dixie Ballard PA-C [address] [place] [address] PCP - General Physician Leather Cleaner 08/10/24 Rafiq Castle MD [address] [place] [address] [email or web address] Insurance Assigned Provider 09/20/23 06/21/24 documented as of this encounter Additional Source Comments The information contained in this document represents components of the legal health record. It is not the complete legal health record.[facility]
--- OUTSIDE RECORDS SUMMARY | 2025-06-01 08:40 | XMS_ITS | Encounter Summary ---
Author Organization [facility] Address [address] [facility] [address] [place] [address] Phone Care Team Providers Care Acute Care Nursing Assistant Name Role Phone Rafiq Castle MD Unavailable [phone] Stacia Rodriguez TAPER OPERATOR Primary Care Provider Dixie Ballard PA-C Primary Care Provider Encounter Details Date Type Department Care Team (Late st Contact Info) Description 05/04/2024 Procedure Pass [facility] Endoscopy Admitting Dept Virtual Department 30 [place], [place] [id number] Social History Tobacco Use Types Packs/Day Years [...] computer) with a working camera? Yes 08/08/2023 Intimate Partner Violence Answer Date R ecorded Are you denied basic needs s uch as food, clothing, or medical care? No 05/04/2024 In the past 12 months have y ou been in a relationship with a person who hurts, threatens, or tries to control you? No 05/04/2024 Are you denied basic needs s uch as food, clothing, or medical care? No 05/04/2024 In the past 12 months have y ou been in a relationship with a person who hurts, threatens, or tries to control you? No 05/04/2024 Comments No Sex and Gender Information Value [...] Description 06/14/2025 8:30 AM EST Procedure visit [facility] [address] [place] [address] Roro Sifuentes MD [address] [place] [address] Orthopedics & Sports Medicine, [facility] [place] [address] 07/11/2025 10:00 AM EST Office Visit [facility] 4 [place] [address] Jody Pollard PA-C [address] [place] [address] Orthopedics & Sports Medicine, [place] [address] [email or web address] 09/01/2025 11:20 AM EDT Office Visit [facility] Primary Care Clinic 40 [place] [address] Dixie Ballard PA-C 40 [place] [address] 10/09/2025 9:15 AM EDT Appointment [facility], Bone [address] [address] Dixie Ballard PA-C 40 [place], [place] [phone] documented as of this encounter Visit Diagnoses Not on filedocumented in this encounter Additional Health Concerns Assessment Noted Time PHQ-2 Depression Total Score: 0 02/20/20 24 1:44 PM EDT documented as of this encounter Care Teams Acute Care Nursing Assistant Relationship Specialty Start Date End Date Stacia Rodriguez FNP [address] [address] PCP - General Nurse Practitioner 08/20/23 08/09/24 Dixie Ballard PA-C 40 [place] [address] PCP - General Physician Research Software Engineer 08/10/24 Rafiq Castle MD [address] [place], [place] [id number] [email or web address] Insurance Assigned Provider 09/20/23 06/21/24 documented as of this encounter Additional Source Comments The information contained in this document represents components of the legal health record. It is not the complete legal health record.[facility]
--- OUTSIDE RECORDS SUMMARY | 2025-06-01 08:40 | XMS_ITS | Encounter Summary ---
Author Organization [facility] Address [address] [employer] [facility] [address] [place] [address] Phone Care Team Providers Care Front Office Secretary Name Role Phone Dixie Ballard PA-C Primary Care Provider [phone] Encounter Details Date Type Department Care Team (Late st Contact Info) Description 02/03/2025 Procedure Pass [facility], [address] [address] Social History Tobacco Use Types Packs/Day Years [...] as food, clothing, or medical care? No 08/25/2024 In the past 12 months have y ou been in a relationship with a person who hurts, threatens, or tries to control you? No 08/25/2024 Are you denied basic needs s uch as food, clothing, or medical care? No 08/25/2024 In the past 12 months have y ou been in a relationship with a person who hurts, threatens, or tries to control you? No 08/25/2024 Comments No Sex and Gender Information Value [...] Description 06/14/2025 8:30 AM EST Procedure visit [facility] Medicine Clinic [address] [place] [address] Roro Sifuentes MD [address] [place] [address] Orthopedics & Sports Medicine, [facility] [place] [address] 07/11/2025 10:00 AM EST Office Visit [facility] Clinic 4 [place] [address] Jody Pollard PA-C [address] [place] [address] Orthopedics & Sports Medicine, [facility] [place] [address] [email or web address] 09/01/2025 11:20 AM EDT Office Visit [facility] Primary Care Clinic 40 [place] [address] Dixie Ballard PA-C 40 [place] [address] 10/09/2025 9:15 AM EDT Appointment [facility], Bone [address] [address] Dixie Ballard PA-C 40 [place] [address] documented as of this encounter Visit Diagnoses Not on filedocumented in this encounter Additional Health Concerns Assessment Noted Time PHQ-2 Depression Total Score: 1 08/26/19 25 7:06 AM EDT documented as of this encounter Care Teams Front Office Secretary Relationship Specialty Start Date End Date Dixie Ballard PA-C 40 [place] [address] PCP - General Physician Senior Civil Engineer 08/10/24 documented as of this encounter Additional Source Comments The information contained in this document represents components of the legal health record. It is not the complete legal health record.[facility]
--- OUTSIDE RECORDS SUMMARY | 2025-06-01 08:40 | XMS_ITS | Encounter Summary ---
Author Organization [facility] Address [address] [facility] [address] [place] [address] Phone Care Team Providers Care Certified Nurse Operating Room Name Role Phone Natalie Palacio MD Unavailable Rafiq Castle MD Unavailable Scott Colón MD Unavailable [phone] Nneka Lay TOOL HARDENER Unavailable Heaven Roth TOOL HARDENER Unavailable [phone] Samina Reveles MD Unavailable Heaven Roth TOOL HARDENER Primary Care Provider Rafiq Castle MD Unavailable aRfiq Castle MD Unavailable Stacia Rodriguez TAILER IN Primary Care Provider Dixie Ballard PA-C Primary Care Provider Encounter Details Date Type Department Care Team (Late st Contact Info) Description 05/12/2019 Ancillary Orders [facility] Primary Care Clinic 40 [place] [address] Heaven Roth, TOOL HARDENER 26 [facility] [address] [place] [address] Breast screening Social History Tobacco Use Types Packs/Day Years Used Date Smoking Tobacco: Former Cigarettes 0.5 20 1 06/16/1983 - 04/16/2004 Smokeless Tobacco: Never Alcohol Use Standard Drinks/Week Comments Yes 0 (1 standard drink = 0.6 oz pur e alcohol) 2 x month Comments No Sex and Gender Information Value [...] Description 06/14/2025 8:30 AM EST Procedure visit [facility] [address] [place] [address] Roro Sifuentes MD [address] [place] [address] Orthopedics & Sports Medicine, [place] [address] 07/11/2025 10:00 AM EST Office Visit [facility] [address] [place] [address] Jody Pollard PA-C [address] [place] [address] Orthopedics & Sports Medicine, [place] [address] [email or web address] 09/01/2025 11:20 AM EDT Office Visit [facility] Primary Care Clinic 40 [place] [address] Dixie Ballard PA-C 40 [place] [address] 10/09/2025 9:15 AM EDT Appointment [facility], Bone [address] [address] Dixie Ballard PA-C 40 [place] [address] [phone] (work) [email or web address] documented as of this encounter Results * BI MAMMOGRAM SCREENING WITH TOMOSYNTHESIS WITH CAD (BILATERAL) (07/23/2019 11:17 AM EST) Anatomical Region Laterality Modality Breast Left, Breast Right, Breast Bilateral Bila teral Mammography 07/23/2019 1:26 PM EST Impressions 07/23/2019 1:29 PM EST No mammographic evidence of malignancy. BI-RADS CATEGORY: 2 - Benign finding. DENSITY: There are scattered fibroglandular densities. POS - [facility] Narrative 07/23/2019 1:29 PM EST Standard digital full-field 2-D C view and two-plane tomographic imaging was performed and compared with multiple prior studies, most recently 07/21/2018, with utilization of computer-aided detection. The breasts are composed of scattered fibroglandular densities. The stromal markings are essentially unchanged in overall appearance and distribution. No dominant spiculated mass, suspicious clustered microcalcifications, or focal zone of pathologic skin thickening or retraction are noted to have arisen in the interim. Bilateral grossly benign-appearing microcalcifications and macrocalcifications are overall stable. Procedure Note Radha Sinclair MD - 07/23/2019 Standard digital full-field 2-D C view and two-plane tomographic imagingwas performed and compared with multiple prior studies, most jbpdwebd74/05/2019, with utilization of computer-aided detection. The breasts are composed of scattered fibroglandular densities. Thestromal markings are essentially unchanged in overall appearance anddistribution. No dominant spiculated mass, suspicious clusteredmicrocalcifications, or focal zone of pathologic skin thickening orretraction are noted to have arisen in the interim. Bilateral grosslybenign-appearing microcalcifications and macrocalcifications are overallstable. IMPRESSION: No mammographic evidence of malignancy. BI-RADS CATEGORY: 2 - Benign finding. DENSITY: There are scattered fibroglandular densities. POS - CDHMAMA Heaven L Mccausland TOOL HARDENER IMG MG EXAMS Final Result documented in [...] Noted Time PHQ-2 Depression Total Score: 0 03/04/20 11:06 AM EDT documented as of this encounter Care Teams Certified Nurse Operating Room Relationship Specialty Start Date End Date Heaven Roth, TOOL HARDENER [address] [place] [address] Orthopedics & Sports Medicine, [place] [address] PCP - General 05/12/17 08/19/23 Stacia Rodriguez FNP [address] [place] [address] PCP - General Nurse Practitioner 08/20/23 08/09/24 Dixie Ballard PA-C [address] [place] [address] PCP - General Physician Geotechnical Laboratory Technician 08/10/24 Natalie Palacio MD [address] [place] [address] Historical LMR Provider 04/03/17 12/29/19 Rafiq Castle MD [address] [place] [address] Historical LMR Provider 04/03/17 12/29/19 Scott Colón MD [address] [facility], [address] [place] [address] Historical LMR Provider 04/03/17 12/29/19 Nneka Lay, TOOL HARDENER 21 [facility] [address] [place] [address] Historical LMR Provider 04/03/17 12/29/19 Heaven Roth NP 26 [facility] [address] [place] [address] Historical LMR Provider 04/03/17 12/29/19 Samina Reveles MD [address] [place] [address] Orthopedics & Sports Medicine, [facility] [place] [address] Historical LMR Provider 04/03/17 12/29/19 Rafiq Castle MD [address] [place] [address] Insurance Assigned Provider 09/22/19 06/23/21 Rafiq Castle MD [address] [place] [address] Insurance Assigned Provider 09/20/23 06/21/24 documented as of this encounter Additional Source Comments The information contained in this document represents components of the legal health record. It is not the complete legal health record.[facility]
--- OUTSIDE RECORDS SUMMARY | 2025-06-01 08:41 | XMS_ITS | Encounter Summary ---
Author Organization [facility] Address [address] [place] [phone] Phone Care Team Providers Care Temple Meat Cutter Name Role Phone Dixie Ballard PA-C Primary Care Provider + [phone] Reason for Visit * Reason Onset Date Comments cortisone injection 03/16/2025 Encounter Details Date Type Department Care Team ([facility] st Contact Info) Description 03/16/2025 Telephone [facility] [address] [facility] [place] [address] [email or web address] cortisone injection Social History Tobacco Use Types Packs/Day Years [...] AM EST documented as of this encounter Progress Notes * Emily Chavez - 2025 2:17 PM EDT [facility]TC[facility] and informed patient Dr. Ibrahim will not have availability until mid-April. * Abida Stinson 03/16/2025 4:49 PM EDT Pt is requesting a cortisone injection. Please contact and advise. Central Support Edge Stainer Machine (Please do not reply to this user; this inbox is not monitored.) Thank you. documented in this encounter Plan of Treatment Upcoming Encounters Date Type Department Care Team (Late st Contact Info) Description 06/14/2025 8:30 AM EST Procedure visit [facility] [address] [place] [address] Roro Sifuentes MD [address] [place] [address] Orthopedics & Sports Medicine, [place] [address] 07/11/2025 10:00 AM EST Office Visit [facility] [address] [address] Jody Pollard PA-C [address] [place] [address] Orthopedics & Sports Medicine, [place] [address] [email or web address] 09/01/2025 11:20 AM EDT Office Visit [facility] [address] [place] [address] Dixie Ballard PA-C [address] [place] [address] 10/09/2025 9:15 AM EDT Appointment [facility], [facility] Density - [address] [address] Dixie Ballard PA-C [address] [place] [address] documented as of this encounter Visit Diagnoses Not on filedocumented in this encounter Additional Health Concerns Assessment Noted Time PHQ-2 Depression Total Score: 1 08/26/19 25 7:06 AM EDT documented as of this encounter Care Teams Temple Meat Cutter Relationship Specialty Start Date End Date Dixie Ballard PA-C [address] [place] [address] [email or web address] PCP - General Physician Marble Polisher 08/10/24 documented as of this encounter Additional Source Comments The information contained in this document represents components of the legal health record. It is not the complete legal health record.[facility]
--- OUTSIDE RECORDS SUMMARY | 2025-06-01 08:41 | XMS_ITS | Encounter Summary ---
Author Organization [facility] Address [address] [place] [address] [place] [phone] Phone Care Team Providers Care Funeral Director Name Role Phone Heaven Roth NP Primary Care Provider [phone] Rafiq Castle MD Unavailable [phone] Stacia RodriguezP Primary Care Provider [phone] Dixie Ballard PA-C Primary Care Provider [phone] Encounter Details Date Type Department Care Team (Late st Contact Info) Description 07/20/2021 Procedure Pass [facility] - [address] [place] [address] Social History Tobacco Use Types Packs/Day Years [...] 06/14/2025 8:30 AM EST Procedure visit [facility] [address] [place] [address] Roro Sifuentes MD [address] [place] [address] Orthopedics & Sports Medicine, [place] [address] 07/11/2025 10:00 AM EST Office Visit [facility] [address] [place] [address] Jody Pollard PA-C [address] [place] [address] Orthopedics & Sports Medicine, [place] [address] [email or web address] 09/01/2025 11:20 AM EDT Office Visit [facility] Primary Care Clinic [address] [place] [address] Dixie Ballard PA-C [address] [place] [address] 10/09/2025 9:15 AM EDT Appointment [facility], Bone [address] [address] Dixie Ballard PA-C [address] [place] [address] documented as of this encounter Visit Diagnoses Not on filedocumented in this encounter Additional Health Concerns Assessment Noted Time PHQ-2 Depression Total Score: 2 04/30/20 21 5:23 PM EST documented as of this encounter Care Teams Funeral Director Relationship Specialty Start Date End Date Heaven Roth NP PCP - General 05/12/17 08/19/23 Stacia Rodriguez FNP [address] [address] [email or web address] PCP - General Nurse Practitioner 08/20/23 08/09/24 Dixie Ballard PA-C [address] [place] [address] PCP - General Physician Baggage Clerk 08/10/24 Rafiq Castle MD [address] [place] [address] [email or web address] Insurance Assigned Provider 09/20/23 06/21/24 documented as of this encounter Additional Source Comments The information contained in this document represents components of the legal health record. It is not the complete legal health record.[facility]
--- OUTSIDE RECORDS SUMMARY | 2025-06-01 08:41 | XMS_ITS | Clinical Summary ---
Author Organization [facility] Address [address] [place] [id number] Phone Care Team Providers Care Computer Systems Security Administrator Name Role Phone Dixie Ballard PA-C Primary Care Provider + [phone] Allergies Active Allergy Reactions Criticality Noted Date Comments Garlic GI Upset 11/05/2019 Latex Rash Low 11/05/2019 Medications Medication-Free Text CBD gummies for pain as needed Active acetaminophen (TYLENOL) 325 mg tablet Take 650 mg by mouth as needed. 06/05/20 23 Active fluticasone propionate (FLONASE) 50 mcg/actuation nasal spray 1 spray by Nasal route daily. Active docusate sodium (COLACE) 50 MG capsule Take 50 mg by mouth daily. Active psyllium husk (METAMUCIL ORAL) Take 3 tablets by mouth daily. gummies Active thiamine 50 MG tablet Take 1 tablet (50 mg total) by mouth daily. 30 tablet 2 07/15/19 25 Active famotidine (PEPCID) 20 MG tablet Take 1 tablet (20 mg total) by mouth 2 (two) times a day. 30 tablet 3 10/22/19 25 Active pantoprazole (PROTONIX) 40 MG tablet Take 40 mg by mouth. 06/05/20 23 Active estradioL (ESTRACE) 0.01 % (0.1 mg/gram) vaginal creamIndications:A trophic vaginitis Place 2 g vaginally 2 (two) times a week. 45.2 g 11/26/19 25 Active levothyroxine (SYNTHROID, LEVOTHROID) 50 MCG tabletIndications: Acquired hypothyroidism Take 1 tablet (50 mcg total) by mouth daily. 90 tablet 3 12/21/19 25 Active lisinopril (PRINIVIL,ZESTRIL) 10 MG tabletIndications: Essential hypertension Take 1 tablet (10 mg total) by mouth daily. 90 tablet 04/08/20 25 Active amLODIPine (NORVASC) 5 MG tabletIndications: Essential hypertension Take 1 tablet (5 mg total) by mouth nightly at bedtime. 90 tablet 3 11/30/19 25 025 Discontin ued(No longer taking) Active Problems Problem Noted Date Diagnosed Date Compression fracture of L1 lumbar vertebra 05/04 Assessment & Plan (05/04/2025 2:08 PM EST): She experienced a fall a few weeks prior which resulted in a compression fracture at L1. Overdue for bone density screening, DEXA ordered. Advised the patient to start a vitamin D and calcium supplement. Discussed management. Adjustment disorder 05/04/2025 Assessment & Plan (05/04/2025 2:08 PM EST): Her is experiencing dementia and has been doing risky online behavior, they are actively trying to make sure that he has appropriate care with geriatrics. However, this has caused her significant amount of stress due to the adjustment. She is interested in seeing a therapist, local resources given to the patient. Will refer to [facility] social work for additional assistance. Advised patient she could also look into [facility] for support for her . Left hip pain 12/23/2024 Assessment & Plan (12/23/2024 2:17 PM EDT): Patient notes 2 weeks of left hip pain following increased physical activity and heavy lifting around the house. Physical exam with tenderness to palpation along the lateral aspect of the left hip at the head of the femur with pain with left hip flexion and internal rotation. I do suspect that this is from arthritis, no red flags. Will obtain an x-ray of the left hip to further assess. [facility] referral placed. Depending on x-ray results, will consider orthopedics referral. Benign paroxysmal positional vertigo of left ear 11/25/2024 Assessment & Plan (11/25/2024 3:06 PM EDT): Diagnosed with BPPV through physical therapy, new referral for [facility] PT placed to specifically focus on BPPV. Atrophic vaginitis 11/25/2024 Assessment & Plan (11/25/2024 3:06 PM EDT): Her urinary symptoms are consistent with atrophic vaginitis, which is common when a person is postmenopausal. Will trial vaginal estrogen cream to help improve blood flow to the area and increased lubrication and moisture. Gastroesophageal reflux disease without esophagi tis 10/27/2024 Assessment & Plan (10/27/2024 3:16 PM EDT): She has been experiencing reflux recently as she has changed her diet to incorporate more solid food instead of protein supplementation. She is prescribed famotidine 20 mg twice daily from Dr. Huerta from general surgery. Discussed dietary changes and supplementation to manage reflux symptoms. Advised to consult her dietitian. Routine general medical exam ination at a health care facility 08/31/2024 Assessment & Plan (05/04/2025 2:08 PM EST): Fasting labs including CMP, lipid panel, thyroid panel as well as hemoglobin A1c ordered to be obtained prior to next visit. Seasonal influenza vaccine administered in the office today. Assessment & Plan (08/31/2024 3:08 PM EDT): Will obtain CMP, thyroid panel, lipid panel, and hemoglobin A1c to further assess. Up-to-date on colonoscopy/mammogram. Chronic left shoulder pain 08/31/2024 Assessment & Plan (05/04/2025 2:07 PM EST): X-ray confirming mild narrowing of the glenohumeral joint space and minimal degenerative changes. Advised to continue with PT. If symptoms worsen, can consider Ortho referral for the shoulder specifically. Assessment & Plan (09/29/2024 1:24 PM EDT): She continues to report persistent chronic left shoulder pain, especially when reaching for objects. Will obtain x-ray of the shoulder for further assessment. Will also initiate physical therapy with [facility] therapy to help manage symptoms. Continue pain management with Tylenol, do not use any NSAIDs due to history of gastric sleeve. Assessment & Plan (08/31/2024 3:09 PM EDT): She is advised to take Tylenol for pain management and avoid ibuprofen due to her recent gastric sleeve surgery and hypertension. She is encouraged to continue moving her shoulder to build muscle strength. If the pain persists, an x-ray and potential physical therapy will be considered during her next visit in 4 weeks. Bariatric surgery status 07/15/2024 Assessment & Plan (05/04/2025 2:08 PM EST): She is status post bariatric surgery and had lost a significant amount of weight and has reached her goal weight. However, she continues to experience weight loss and has been unable to get enough protein in her diet. Discussed lifestyle modifications and advised patient to continue to follow-up with the registered dietitian that she is seeing. Assessment & Plan (10/27/2024 3:16 PM EDT): She is 3 months post weight loss surgery and has been experiencing dietary challenges. Following with general surgery as well as a dietitian. She is planning on getting a second opinion from [facility]. She is questioning whether or not she should get certain lab work done to assess for any nutritional deficiencies. Postsurgery she was anemic. Will obtain CBC, vitamin D, B12, and folate. Class 1 obesity due to exces s calories with serious comorbidity and body mass index (BMI) of 30.0 to 30.9 in adult 04/12/2024 Assessment & Plan (09/29/2024 1:24 PM EDT): She was extremely frustrated with the weight management program due to them not having a registered dietitian after her surgery as they are registered dietitian was is on maternity leave. She had her first meeting back with a registered dietitian today which went well. Next appointment with the dietitian scheduled 10/20/2024. Encouraged to continue advocating for her health and follow the dietitians recommendations. Assessment & Plan (08/31/2024 3:07 PM EDT): She underwent bariatric gastric sleeve surgery at the end of June 2024 and has since lost 40 pounds. She reports difficulty eating and drinking water, which is common post-surgery. She is advised to keep trying different foods and fluids to find what works best for her. She is also encouraged to ensure adequate protein intake, aiming for 60 grams per day. Assessment & Plan (05/28/2024 11:40 AM EST): This is a 79-year-old woman who is interested in a laparoscopic sleeve gastrectomy for weight loss. The patient is completed 5 out of 5 nutrition classes, 2 out of 2 behavioral health assessments, and all required testing. She now has 6.2 pounds to lose before being surgical weight loss candidate. She will continue current eating plan exercise plan and water intake. She will follow-up with dietitian as already scheduled for May 27 and follow-up with me again in 5 weeks timeframe. She is not stable and is considered obese. She has completed all requirements to be admitted to the insurance company for approval for laparoscopic sleeve gastrectomy with possible hiatal hernia repair and intraoperative endoscopy. Once we have approval and the insurance company will set up a preoperative visit with the dietitian to go over the perioperative course and we will set up a surgical date. Assessment & Plan (04/12/2024 10:30 AM EDT): This is a 79-year-old woman who is interested in a laparoscopic sleeve gastrectomy for weight loss. The patient has done extremely well with weight loss. She has an additional 6 pounds to lose before being a surgical weight loss candidate. She is consuming at least 80 g of protein and is sticking to the eating plan, she is drinking plenty of water and is exercising regularly. She will continue this plan. She will continue current medications as reviewed although she is going to speak with her primary care physician about her blood pressure medication. She is not stable and is considered obese. I will follow-up with her again in 3 weeks timeframe and if she is lost all of her weight we will submit her information to the insurance company for approval for the sleeve gastrectomy. She has completed 5 out of 5 nutrition classes, 2 out of 2 behavioral health assessments and has been cleared and all required testing. Preoperative examination 01/20/2024 Vitamin D deficiency 05/03/2022 Acute pain of left knee 05/03/2022 Assessment & Plan (08/09/2023 11:06 AM EST): Status post total knee replacement. She is slowly progressing in recovery. Continue physical therapy as scheduled. Assessment & Plan (05/13/2022 3:12 PM EST): Temporary prescription of Tylenol 3 prescribed for the left knee pain, may take with the meloxicam previously prescribed. Rosacea 05/02/2021 Overactive bladder 05/02/2021 Diet-controlled diabetes mellitus 08/30/2020 Assessment & Plan (08/09/2023 11:07 AM EST): A1c in April 2023 5.9% and diet controlled. Primary osteoarthritis of right knee 04/14/2020 Assessment & Plan (08/31/2024 3:08 PM EDT): She reports ongoing knee pain and nerve damage in her right knee following surgeries in May 2019 and May 2023. She is advised to continue monitoring her symptoms and manage her activities to avoid exacerbating the pain. If the pain persists, further imaging and referral to Orthopedics may be considered. Spider veins of both lower extremities 8 Venous insufficiency of both lower extremities 0 07/07/2017 Assessment & Plan (11/25/2024 3:06 PM EDT): She notes varicose veins on her bilateral legs that she thinks have been exacerbated since her recent weight loss. Advised to use compression socks. Assessment & Plan (10/10/2017 4:44 PM EDT): Successful ablation of the right G SV. No signs or symptoms of DVT. Does have some nerve pain, recommend ice packs and Tylenol. Should resolve in a couple weeks. Follow up in 3 months for reassessment of symptoms at that time if still has symptoms can consider repeat ultrasound to evaluate for continued successful ablation of treated segments or additional reflux. She will continue with compression stockings as needed for prolonged standing or car rides and recommended continuing to avoid heavy lifting. Also recommended weight loss. Assessment & Plan (09/10/2017 10:59 AM EDT): She has extensive varicose veins and spider veins. Venous duplex shows severe venous insufficiency. We got a good result with the left leg. Her legs feeling much better and her varicose veins are much improved. She still has one behind her left knee but it is better. Her right leg bothers her as well. We will schedule venous ablation of her right great saphenous vein and I may consider sclerotherapy of the extensive spider veins in her foot at the same time as those bother her as well. Assessment & Plan (07/07/2017 2:44 PM EST): She has extensive varicose veins and her duplex shows severe venous insufficiency. In the right leg she has some insufficiency of the deep veins, great saphenous vein and short saphenous vein. In the left leg it's just the great 7 is vein and short saphenous vein. I discussed mention options with her. Unfortunate she does not like wearing compression stockings which cause symptoms in her. Her left leg does bother her particularly behind her left knee. That leg in particular she would benefit from ablation of the left great saphenous vein. This will be scheduled within the next month. If she gets significant relief in her left leg we could consider the right leg as well. Acquired hypothyroidism 05/15/2017 Assessment & Plan (08/31/2024 3:07 PM EDT): She has been on levothyroxine 50 mcg for years, and her thyroid levels have been stable. She will continue her current medication regimen. Essential hypertension 05/15/2017 Assessment & Plan (05/04/2025 2:08 PM EST): History of hypertension, she was recently experiencing some dizziness so she self discontinued her amlodipine. Blood pressure today 100/62 in the office. Given her symptoms of dizziness, patient agreed to continue discontinuing the amlodipine as it was likely causing hypotension. Will continue on lisinopril 10 mg daily with the possibility of decreasing to 5 mg daily. Advised patient to continue monitoring her blood pressure at home. Decrease in blood pressure likely in the setting of weight loss status post bariatric surgery. Assessment & Plan (11/25/2024 3:05 PM EDT): Well-managed on lisinopril 10 mg daily and amlodipine 5 mg nightly. Assessment & Plan (10/27/2024 3:15 PM EDT): Blood pressure continues to remain elevated in the office and at home despite adherence to the increased lisinopril dosage of 10 mg. Will reinitiate amlodipine 5 mg at night. Side effects discussed. Will follow-up in 4 weeks to reassess. Assessment & Plan (09/29/2024 1:23 PM EDT): Blood pressure has been consistently elevated during 2 office visits as well as at home readings. Will increase lisinopril to 10 mg daily. Advised to continue monitoring blood pressure at home and to either bring the blood pressure readings to the office or upload them to the portal. Will follow-up in 4 weeks to reassess blood pressure now that she is on the 10 mg dose. Assessment & Plan (08/31/2024 3:07 PM EDT): Her blood pressure readings have been predominantly within the normal range, with occasional elevations. She will maintain her current regimen of lisinopril 5 mg. She is advised to continue her blood pressure log, recording her readings once daily during periods of relaxation, preferably an hour post-medication. A follow-up appointment is scheduled in 4 weeks to reassess her blood pressure and determine if an increase in lisinopril dosage to 10 mg is necessary. Assessment & Plan (06/15/2024 12:51 PM EST): Amlodipine 5 mg tablets sent to pharmacy given concern for potential inconsistent dosing. She will continue to monitor blood pressure at home and we discussed potential further dose reduction should she continue to experience postural lightheadedness. Assessment & Plan (08/09/2023 11:03 AM EST): Blood pressure at treatment goal today in office. Denies any side effects including dizziness or lightheadedness. Continue current medications as prescribed Assessment & Plan (05/13/2022 3:11 PM EST): Blood pressures okay controlled at home, meloxicam can raise it a little bit however with just occasional use that should not be a problem. Assessment & Plan (10/10/2017 4:44 PM EDT): Well-controlled on current medications. Goal SBP less than 130. Assessment & Plan (09/10/2017 11:01 AM EDT): Her blood pressure has been well controlled. Assessment & Plan (07/07/2017 2:43 PM EST): Her blood pressures well controlled. Mixed hyperlipidemia 05/15/2017 Assessment & Plan (10/10/2017 4:46 PM EDT): Cholesterol currently diet controlled, last LDL 123 at goal less than 130 2+ cardiac risk factors. Should continue to have lipids checked periodically with PCP. Recommend continuing daily aspirin for primary prevention. Renal cyst 05/15/2017 Renal insufficiency 05/15/2017 Female cystocele 05/15/2017 Resolved Problems Problem Noted Date Diagnosed Date Resolved Date Class 2 severe obesity due t o excess calories with serious comorbidity and body mass index (BMI) of 37.0 to 37.9 in adult 05/15/2017 5 Assessment & Plan (01/20/2024 2:23 PM EDT): This is a 78 YO patient who is interested in weight loss surgery, specifically the laparoscopic sleeve gastrectomy for weight loss. We have discussed gastric bypass and sleeve gastrectomy surgery in detail including risks, benefits, and alternatives. We have also discussed requirements preop and post op. They understands that they are required to lose about 10 percent of their current weight which is 21 lbs. The goal weight at the time of submission to the insurance company will be 188.2 pounds. In an effort to help the patient to lose weight I have prescribed an eating plan which will consist of a protein shake or a protein bar or Cameroonian yogurt or cottage cheese to be consumed at 9 AM and 3 PM daily. The patient will consume 4 ounces of protein with 6 ounces of vegetable or small salad with a noncreamy salad dressing of not more than 2 tablespoons at 12 PM and 6 PM daily. At the 6 PM meal the patient may have 1/2 cup of carbohydrate. We have ordered required labs and testing. The patient will attend 5 nutrition classes, 2 appointments, and dietitian consultation. The patient will need to obtain a medical clearance letter from the primary care doctor prior to submission to the insurance company. The patient will see the dietitian in 2 and 4 weeks and I will follow up with them again in 6 weeks to ensure compliance with the meal plan. The patient will continue current medications as reviewed. They are not stable and are considered obese. I spent 55 minutes with this patient which also included documentation. Assessment & Plan (08/09/2023 11:05 AM EST): BMI is only one component of a health assessment, and it is an imperfect tool. Recommendations about body weight and obesity are influenced by dominant cultural and societal values, and often reflect biases of the provider. I encourage all patients, regardless of BMI, to eat a healthy diet and to get regular exercise. We monitor all patients for illnesses such as HTN, diabetes and high cholesterol. Discussed desire for increased physical activity in the setting of total knee replacement and physical therapy Assessment & Plan (10/10/2017 4:46 PM EDT): Recommend weight loss to prevent progression of her venous insufficiency with light aerobic exercise and diet modification. Encounters Date Type Department Care Team Description 05/09/2025 Telephone [facility] [address] [place] [address] Rosario Adnino Care Coordination 05/04/2025 1:00 PM EST Office Visit [facility] [address] [facility] [place] [address] Dixie Ballard PA-C Adjustment disorder, unspecified type (Primary Dx); Diet-controlled diabetes mellitus; Compression fracture of L1 vertebra, initial encounter; Routine general medical examination at a health care facility; Acquired hypothyroidism; Chronic left shoulder pain; Bariatric surgery status; Essential hypertension 04/27/2025 2:30 PM EST Office Visit [facility] [address] [place] [address] [place] [address] David Bowden MD Primary osteoarthritis of left hip (Primary Dx); Lumbar radiculopathy; Degeneration of intervertebral disc of lumbar region with discogenic back pain and lower extremity pain; Arthropathy of left sacroiliac joint; Neural foraminal stenosis of lumbar spine; Closed compression fracture of body of L1 vertebra 03/16/2025 Telephone [facility] [address] [place] [address] Abida Stnison cortisone injection 03/08/2025 10:00 AM EDT Office Visit [facility] [address] [place] [address] Chuck Ibrahim MD Disorder of sacrum (Primary Dx); Gluteal tendinitis, left hip 03/06/2025 12:36 PM EDT - 03/06/2025 11:59 PM EDT Hospital Encounter [address] [address] David Bowden MD Discharge Disposition: Home or Self Care 02/03/2025 Procedure Pass [address] [address] from Last 3 Months Immunizations Immunization Administration Dates Next Due COVID-19 (Pre-04/07) Pfizer Vaccine, mRNA, PF 08/29/2020,08/07/2020 COVID-19 (Pre-04/07) Pfizer Vaccine, mRNA, robyn-sucrose, PF 09/26/2021 INFLUENZA, SPLIT VIRUS, TRIV ALENT W/ PRESERVATIVE IM 02/10/2012,04/15/2008 Influenza High-Dose Quadriva lent Preservative Free IM 03/20/2023,04/02/2022,05/02/2021,03/31 Influenza High-Dose Trivalen t Preservative Free IM 05/04/2025 Influenza, whole 05/14/2010 Pneumococcal polysaccharide PPSV23 02/10/2012 Zoster live 03/16/2013 Zoster recombinant 12/05/2022,10/03/2022 Family History Medical History Relation Comments Arthritis Brother 1 Hypertension Brother 1 CV disease Father Diabetes mellitus Father CV disease Mother Diabetes mellitus Mother Colon cancer Sister 1 Hyperlipidemia Sister 1 Hypertension Sister 1 Kidney disease Sister 1 Hyperlipidemia Sister 2 Hypertension Sister 2 Bipolar disorder Son Drug use disorder Son Relation Status Comments Brother 1 Alive Brother 2 (Age 17) MVA Brother 3 (Age 21) MVA Father Mother Sister 1 Sister 2 Alive Son Alive Social History Tobacco Use Types Packs/Day Years Used Date Smoking Tobacco: Former Cigarettes 0.5 20 1 06/16/1983 - 04/16/2004 Smokeless Tobacco: Never Tobacco Cessation:Counseling Given: Not Answered Alcohol Use Standard Drinks/Week Comments Not Currently [...] your housing situation today? I have anjali sing 08/08/2023 How many times have you move [...] Orientation Straight 07/16/2019 8: 53 AM EST Last Filed Vital Signs Vital Sign Reading Time Taken Comments Blood Pressure 100/62 05/04/2025 12:53 PM EST Pulse 80 05/04/2025 12:53 PM EST Temperature 36.2 C (97.1 F) 05/04/2025 12:53 PM EST Respiratory Rate 13 05/04/2025 12:5 3 PM EST Oxygen Saturation 93% 05/04/2025 12: 53 PM EST Inhaled Oxygen Concentration - - Weight 67.9 kg (149 lb 12.8 oz) 025 12:53 PM EST Height 160 cm (5' 2.99 ) 05/04/2025 12: 53 PM EST Body Mass Index 26.54 05/04/2025 12:53 PM EST Plan of Treatment Upcoming Encounters Date Type Department Care Team (Late st Contact Info) Description 06/14/2025 8:30 AM EST Procedure visit [facility] [address] [place] [id number] Roro Sifuentes MD [address] [place] [address] Orthopedics & Sports Medicine, [facility] [place] [address] 07/11/2025 10:00 AM EST Office Visit [facility] [address] [address] Jody Pollard PA-C [address] [facility] [place] [address] [email or web address] 09/01/2025 11:20 AM EDT Office Visit [facility] [address] [place] [address] Dixie Ballard PA-C [address] [place] [address] 10/09/2025 9:15 AM EDT Appointment [facility] [address] [address] Dixie Ballard PA-C [address] [place] [address] [email or web address] Health Maintenance Due Date Last Done Comments Adult Td,Tdap Booster 1946 COLOGUARD 1991 FIT TEST 1991 FOBT 1991 SIGMOIDOSCOPY 1991 VIRTUAL COLONOSCOPY 1991 PNEUMOCOCCAL VACCINES (50+ years) (2 of 2 - PCV) 02/09/2013 02/10/2012 DIABETIC EYE EXAM 08/30/2020 RSV VACCINE (1 - 1-dose 75+ series) 2021 COVID-19 VACCINE ( season) 2025 02/26/2022, 09/26/2021, 03/19/2021, Additional history exists HEMOGLOBIN A1C 03/04/2025 09/01/2024, 08/0 12/2023, 05/16/2023, Additional history exists DEPRESSION SCREENING 08/25/2025 08/25/2024 CREATININE LEVEL 09/01/2025 09/01/2024, , 07/13/2024, Additional history exists LIPID PANEL 09/01/2025 09/01/2024, 08/0 12/2023, 05/06/2023, Additional history exists POTASSIUM LEVEL 09/01/2025 09/01/2024, 06/18, 07/13/2024, Additional history exists TSH LEVEL 09/01/2025 09/01/2024, 08/0 12/2023, 05/06/2023, Additional history exists BLOOD PRESSURE 11/01/2025 05/04/2025 COLONOSCOPY 05/04/2029 05/04/2024, 071 11/2017, 08/12/2007 COLORECTAL CANCER SCREENING 05/04/2029 OSTEOPOROSIS SCREENING INITIAL (ONE-TIME) Completed 07/21/2018 HEPATITIS C SCREENING Completed 06/30/2019, 020 ZOSTER VACCINES Completed 12/05/2022, 09/15, 03/16/2013 INFLUENZA VACCINE Completed 05/04/2025, , 03/20/2023, Additional history exists SMOKING STATUS SCREENING (Once After 26 Yrs) Completed 05/04/2025 HEPATITIS A VACCINES Aged Out No long er eligible based on patient's age to complete this topic HIB VACCINES Aged Out No longer eligi ble based on patient's age to complete this topic MENINGOCOCCAL VACCINES (ACWY) Aged Out No longer eligible based on patient's age to complete this topic MENINGOCOCCAL VACCINES (B) Aged Out N o longer eligible based on patient's age to complete this topic Medical Devices Implanted Type Area Ham Facer Device Identifier Shelf Expiration Date Model / Serial / Lot Lens Lens Eye Bilateral Knee Replacements Procedures Procedure Name Priority Date/Time Associated Diagnosis Comments MRI LUMBAR SPINE (NEURO) WITHOUT CONTRAST Routine 03/06/2025 1:38 PM EDT Lumbar radiculopathy Degeneration of intervertebral disc of lumbar region with discogenic back pain and lower extremity pain HEMOGLOBIN A1C Routine 09/01/2024 10:28 AM EDT Diet-controlled diabetes mellitus Routine general medical examination at a health care facility LIPID PANEL Routine 09/01/2024 10:28 AM EDT Diet-controlled diabetes mellitus Routine general medical examination at a [facility] care facility TSH WITH REFLEX Routine 09/01/2024 10:28 AM EDT Acquired hypothyroidism Routine general medical examination at a health care facility COMPREHENSIVE METABOLIC PANEL (CMP) Routine 09/01/2024 10:28 AM EDT Routine general medical examination at a health care facility ENDOSCOPY, COLON 05/04/2024 12:3 4 PM EST HEPATITIS C ANTIBODY, QUALITATIVE Routine 06/30/2019 9:17 AM EST Need for hepatitis C screening test BD DXA AXIAL (SPINE) WITH HIP Routine 07/21/2018 11:20 AM EST Post-menopausal from Last 3 Months or Most Recently Relevant to Health Maintenance Results * MRI LUMBAR SPINE (NEURO) WITHOUT CONTRAST (03/06/2025 1:38 PM EDT) Anatomical Region Laterality Modality L-spine Magnetic Resonan ce 03/07/2025 2:36 PM EDT Impressions 03/07/2025 2:39 PM EDT 1. Probable recent L1 superior endplate compression fracture with mild loss of vertebral body height. Narrative 03/07/2025 2:39 PM EDT MRI LUMBAR SPINE (NEURO) WITHOUT CONTRAST Referring clinician's provided indication for this examination in Epic: * Lumbar radiculopathy, > 6 wks TECHNIQUE: MRI LUMBAR SPINE (NEURO) WITHOUT CONTRAST Multi-sequence, multi-planar MRI of the lumbar spine was performed without intravenous contrast. COMPARISON: FINDINGS: LUMBAR SPINE: Alignment and Vertebrae: There is a mild concavity within the L1 superior endplate likely a recent compression fracture with mild loss of L1 vertebral body height. There is grade 1 spinal listhesis at L3-4. Marrow: No bone marrow replacing lesion. Discs and Endplates: Mild intervertebral disc height loss at L3-4. Conus: The conus terminates at the L1-2 level. The conus appears normal in signal intensity. Soft Tissues: Small amount of prevertebral edema at the T12-L1 levels. Other Findings: None. Findings by level: T12-L1: No spinal canal or neural foraminal narrowing. L1-L2: No spinal canal or neural foraminal narrowing. L2-L3: No spinal canal or neural foraminal narrowing. L3-L4: There is grade 1 spondylolisthesis, disc bulge and facet arthropathy. There is bilateral subarticular and mild central spinal canal narrowing. There is mild bilateral neural foraminal narrowing. L4-L5: There is a disc bulge and facet arthropathy without spinal canal or neural foraminal narrowing. L5-S1: There is a disc bulge and facet arthropathy without spinal canal or left neural foraminal narrowing. There is mild right neural foraminal narrowing. Procedure Note Ramesh Vikcers, DO - 03/07/2025 MRI LUMBAR SPINE (NEURO) WITHOUT CONTRAST Referring clinician's provided indication for this examination in Epic: *Lumbar radiculopathy, > 6 wks TECHNIQUE: MRI LUMBAR SPINE (NEURO) WITHOUT CONTRAST Multi-sequence, multi-planar MRI of the lumbar spine was performed withoutintravenous contrast. COMPARISON: FINDINGS: LUMBAR SPINE: Alignment and Vertebrae: There is a mild concavity within the L1 superiorendplate likely a recent compression fracture with mild loss of [id number] body height. There is grade 1 spinal listhesis at L3-4. Marrow: No bone marrow replacing lesion. Discs and Endplates: Mild intervertebral disc height loss at L3-4. Conus: The conus terminates at the L1-2 level. The conus appears normal insignal intensity. Soft Tissues: Small amount of prevertebral edema at the T12-L1 levels. Other Findings: None. Findings by level: T12-L1: No spinal canal or neural foraminal narrowing. L1-L2: No spinal canal or neural foraminal narrowing. L2-L3: No spinal canal or neural foraminal narrowing. L3-L4: There is grade 1 spondylolisthesis, disc bulge and facetarthropathy. There is bilateral subarticular and mild central spinal canalnarrowing. There is mild bilateral neural foraminal narrowing. L4-L5: There is a disc bulge and facet arthropathy without spinal canal orneural foraminal narrowing. L5-S1: There is a disc bulge and facet arthropathy without spinal canal orleft neural foraminal narrowing. There is mild right neural foraminalnarrowing. IMPRESSION: 1. Probable recent L1 superior endplate compression fracture with mildloss of vertebral body height. us David Bowden MD IMG MR XSPECIALTY Final Result * (ABNORMAL) Comprehensive metabolic panel (09/01/2024 10:28 AM EDT) SODIUM 144 133 - 146 mmol/L [facility] POTASSIUM 5.0 3.3 - 5.1 mmol/L [facility] CHLORIDE 106 96 - 108 mmol/L [facility] CO2 27 21 - 35 mmol/L [facility] BUN 40(H) 6 - 19 mg/dL [facility] CREATININE 1.10 0.5 - 1.5 mg/dL [facility] GLUCOSE 113(H) 70 - 99 mg/dL [facility] ALBUMIN 3.9 3.9 - 4.8 g/dL [facility] TOTAL PROTEIN 7.0 6.5 - 8.0 g/dL [facility] CALCIUM 9.5 8.4 - 10.3 mg/dL [facility] ALKALINE PHOSPHATASE 57 39 - 117 U/L [facility] TOTAL BILIRUBIN 0.3 0.0 - 1.2 mg/dL [facility] AST 20 0 - 37 U/L [facility] ALT 11 0 - 40 U/L [facility] GLOBULIN 3.1 1 - 4.8 g/dL [facility] EGFR 51(L) >59 mL/min/1.7 3m2 [facility] Comment:Estimated glomerular filtration rate calculated using the CKD-EPI refit equation. ANION GAP 16 10 - 20 mmol/L [facility] Blood 09/01/2024 10:2 8 AM EDT 09/01/2024 10:32 AM EDT us Dixie Ballard PA-C LAB BLOOD BKR ORDERABLES Fin al Result [facility] [address] [place] [address] * TSH with reflex (09/01/2024 10:28 AM EDT) TSH 1.52 0.27 - 4.20 uIU/mL [facility] Blood 09/01/2024 10:2 8 AM EDT 09/01/2024 10:32 AM EDT [facility] PA-C LAB BLOOD BKR ORDERABLES Fin al Result Performing Organization Address City/[facility] Co de Phone Number [address] [address] * Hemoglobin A1c (09/01/2024 10:28 AM EDT) HEMOGLOBIN A1C 5.6 4.3 - 5.8 % [facility] Blood 09/01/2024 10:2 8 AM EDT 09/01/2024 10:32 AM EDT [facility]- LAB BLOOD BKR ORDERABLES Fin al Result Performing Organization Address City/[facility] Co de Phone Number [address] [address] * Lipid panel (09/01/2024 10:28 AM EDT) HDL 42 mg/dL [facility] Comment: Interpretation <40 mg/dL: Low HDL cholesterol (major risk factor for CHD) Greater than or equal to 60 mg/dL: High HDL cholesterol ( negative risk factor for CHD) HDL - cholesterol is affected by a number of factors, e.g. smoking, excerise, hormones, sex and age. CHOLESTEROL 163 0 - 240 mg/dL [facility] TRIGLYCERIDES 97 30 - 160 mg/dL [facility] LDL 102 50 - 129 mg/dL [facility] Comment: LDL levels in terms of risk for coronary heart disease: <100 mg/dL: Optimal 100-129 mg/dL: Near or above optimal 130-159 mg/dL: Borderline high 160-189 mg/dL: High >190 mg/dL: Very High CARDIAC RISK RATIO 3.9 3.3 - 4.4 C [facility] Blood 09/01/2024 10:2 8 AM EDT 09/01/2024 10:33 AM EDT us Dixie Ballard PA-C LAB BLOOD BKR ORDERABLES Fin al Result [facility] [address] [place] [address] * ENDOSCOPY, COLON (05/04/2024 12:34 PM EST) Narrative Transcriptions Lalito Tompkins MD - 05/04/2024 12:34 PM EST [facility] Patient Name: Fabienne Heidi Attending MD:: LALITO TOMPKINS MD, , Procedure Date: 05/04/2024 12:34PM Date of : 1945 Age: 79 Admit Type: Outpatient Gender: Female Room: [place] [address] Referring MD: Stacia Rodriguez Exam Type: Colonoscopy Indications: High risk colon cancer surveillance: Personalhistory of colonic polyps Medications: Monitored Anesthesia Care Procedure: Informed consent was obtained from the patientafter discussion of the indications, limitations, alternatives, benefits, and risks of the procedure. Risks specifically discussed include but are not limited to medication reactions, missed lesions, bleeding, perforation, or the need for emergent surgery. Throughout the procedure, the patient's blood pressure, pulse, end-tidal CO2, and oxygensaturations were monitored continuously. The Colonoscope was introduced through the anus and advanced to the cecum, identified by appendiceal orifice and ileocecal valve. The colonoscopy was performed without difficulty. The patient tolerated the procedure well. The quality of the bowel preparation was excellent. The quality of the bowel preparation was evaluated using the BBPS (BostonBowel Preparation Scale) with scores of: Right Colon = 3, Transverse Colon = 3 and Left Colon = 3 (entiremucosa seen well with no residual staining, smallfragments of stool or opaque liquid). The total BBPS score equals 9. Anatomical landmarks were photographed. Complications: No immediate complications. Estimated blood loss: Minimal. Findings: The perianal and digital rectal examinations were normal. Two sessile polyps were found in the ascendingcolon. The polyps were 3 to 5 mm in size. These polypswere removed with a cold snare. Resection and retrieval were complete. Scattered small and large-mouthed diverticula were found in the sigmoid colon. There was narrowing ofthe colon in association with the diverticularopening. Internal hemorrhoids were found duringretroflexion. The hemorrhoids were mild. The exam was otherwise normal throughout theexamined colon. Impression: - Two 3 to 5 mm polyps in the ascending colon,removed with a cold snare. Resected and retrieved. - Moderate diverticulosis in the sigmoid colon.There was narrowing of the colon in association with the diverticular opening. - Internal hemorrhoids. Recommendation: - Discharge patient to home. - Await pathology results. LALITO TOMPKINS MD, 05/04/2024 12:56:01 PM This report has been signed electronically. Number of Addenda: 0 Note Initiated On: 05/04/2024 12:34 PM Procedure Code(s): --- Professional --- 29994, Colonoscopy, flexible; with removal of tumor(s), polyp(s), or other lesion(s) by snare technique --- Technical --- 84488, Colonoscopy, flexible; with removal of tumor(s), polyp(s), or other lesion(s) by snare technique Diagnosis Code(s): --- Professional --- Z86.010, Personal history of colonic polyps D12.2, Benign neoplasm of ascending colon K64.8, Other hemorrhoids K57.30, Diverticulosis of large intestine without perforation or abscess without bleeding --- Technical --- Z86.010, Personal history of colonic polyps D12.2, Benign neoplasm of ascending colon K64.8, Other hemorrhoids K57.30, Diverticulosis of large intestine without perforation or abscess without bleeding CPT copyright 2021 [employer]. All rights reserved. The codes documented in this report are preliminary and upon body bumper reviewmay be revised to meet current compliance requirements. Procedure Date: 05/04/2024 12:34:[address] [place] [id number] us Stacia Rodriguez [employer] [facility] REPORTER GI PROCEDURE ORDERABLES Fin al Result * Hepatitis C antibody, qualitative (06/30/2019 9:17 AM EST) HCV NON-REACTIV E NON-REACTI VE [facility] Blood 06/30/2019 9:17 AM EST 06/30/2019 9:20 AM EST us Heaven Roth [employer] LAB BLOOD BKR ORDERABLES Final Result [address] [address] * BD DXA AXIAL (SPINE) WITH HIP (07/21/2018 11:20 AM EST) Anatomical Region Laterality Modality Bone Density Bone Density 07/21/2018 11:3 4 AM EST Impressions 07/21/2018 11:36 AM EST Normal bone mineral density at all 3 sites POS -[id number] Narrative 07/21/2018 11:36 AM EST This is a 73-year-old female who reports an indeterminate height loss. Currently on daily calcium supplementation. Remote but no recent hormone therapy. No history of steroid use.. No comparison. Evaluation of the lumbar spine and hips was performed and felt to be technically adequate. Total bone mineral density in the L1-L4 vertebral bodies was calculated at 1.031 gm/cm2 with a T score of -0.1. This falls within the WHO classification of normal. Total bone mineral density in the right proximal femur was calculated at 1.036 gm/cm2 with a T-score of 0.8 falling within the WHO classification of normal. Total bone mineral density in the left proximal femur was calculated at 1.070 gm/cm2 with a T-score of 1.0 falling within the WHO classification of normal. Procedure Note Ramon Qureshi MD - 07/21/2018 This is a 73-year-old female who reports an indeterminate heightloss. Currently on daily calcium supplementation. Remote but no recent hormone therapy. No history of steroid use.. No comparison. Evaluation of the lumbar spine and hips was performed and felt to betechnically adequate. Total bone mineral density in the L1-L4 vertebral bodies was calculated at1.031 gm/cm2 with a T score of -0.1. This falls within the WHOclassification of normal. Total bone mineral density in the right proximal femur was calculated at1.036 gm/cm2 with a T-score of 0.8 falling within the WHO classificationof normal. Total bone mineral density in the left proximal femur was calculated at1.070 gm/cm2 with a T-score of 1.0 falling within the WHO classificationof normal. IMPRESSION: Normal bone mineral density at all 3 sites POS -[id number] Heaven Roth NP IMG BD BONE DENSITY DEXA Final Result from Last 3 Months or Most Recently Relevant to Health Maintenance Insurance MEDICARE PART A & B [facility] MEDICARE ENHANCE SUPPLEMENT MEDICARE PART A & B [facility] MEDICARE ENHANCE SUPPLEMENT [facility] [place] [place] Address: [address] [place] [id number] MEDICARE PART A & B [facility] MEDICARE ENHANCE SUPPLEMENT MEDICARE PART A & B [facility] MEDICARE ENHANCE SUPPLEMENT MEDICARE PART A & B [facility] MEDICARE ENHANCE SUPPLEMENT MEDICARE PART A & B [facility] MEDICARE ENHANCE SUPPLEMENT MEDICARE PART A & B [facility] MEDICARE ENHANCE SUPPLEMENT MEDICARE PART A & B [facility] MEDICARE ENHANCE SUPPLEMENT MEDICARE PART A & B [facility] MEDICARE ENHANCE SUPPLEMENT Advance Directives For more information, please contact: [phone] (9AM - 5PM [facility], Friday-Friday) * Full Code (Latest Code Status on File) Date Activated Date Inactivated Comments 07/15/2024 2:05 PM Question Answer Comments Code Status Confirmed With: Patient * Full Code Date Activated Date Inactivated Comments 07/15/2024 6:04 AM 07/15/2024 2:05 PM Question Answer Comments Code Status Confirmed With: Patient Care Teams Computer Systems Security Administrator Relationship Specialty Start Date End Date Dixie Ballard PA-C [address] [place] [address] [email or web address] PCP - General Physician Fructose Loader 08/10/24 Additional Source Comments The information contained in this document represents components of the legal health record. It is not the complete legal health record.[facility]
--- OUTSIDE RECORDS SUMMARY | 2025-06-01 08:41 | XMS_ITS | Data Portability ---
Author Organization [facility] [employer], [address] Address [address] [place] [address] Assessment No assessment recorded. Plan of Treatment Reminders Order Date Submit Date Provider Last Modified By Organization Details Last Modified Time Details Appointments None recorded. Lab urinalysis, dipstick 2021 [email or web address] _[facility], [address] [place] [address], [phone], 10:31:05 culture, urine 2021 [place] [facility], [address] [place] [address], [place], [address], 3 12:05:54 Referral None recorded. Procedures None recorded. Surgeries None recorded. Imaging None recorded. Medication Orders cephalexin 500 mg capsule 2021 [facility] #[id number], [address] [place], [address], 10:31:07 Patient TargetsNo targets recorded. Patient Instructions Encounter Date Encounter Id Patient Instructions Last Modified By Organization Details Last Modified Time 06/15/2022 [id number] We recommend you get a repeat urinalysis in 2 weeks to ensure that any abnormalities have resolved. If urine abnormalities persist, you will likely need further testing or treatment. We will contact you within 3 to 5 days with the results of your lab test. If you have not heard back from us within that time frame, please feel free to contact our office regarding your results. Go to the Emergency Department immediately if your symptoms worsen or if you develop new symptoms that concern you. Drink plenty of fluids You should follow-up with your PCP in 4-5 days, or at any time if your condition does not improve or worsens. Any acute change should prompt a visit to the nearest Emergency Department. [email or web address] Not available 06/15/2022 10:25:04 Reason for Referral None Reported. Results Created Date Observation Date Name Description Value Unit Range Abnormal Flag Note LastModifiedBy Organization Detail LastModifiedTime 06/15/20 22 06/17/2022 URINE CULTU RE, ROUTI NE urine culture, routine FINAL REPORT Not Available [facility] ([facility]) [address] [facility], [place], [address], 06/17/2022 12:05:54 06/15/20 22 06/17/2022 URINE CULTU RE, ROUTI NE result 1 COMMEN T Cultu re shows less than 10,00 0 colon y formi ng units of bacte joaquin per leny liter of urine . This colon y count is not gener ally consi dered to be clini niyah signi fican t. Not Available [facility] ([facility]) [address] [facility], [place], [address], 06/17/2022 12:05:54 06/15/20 22 06/15/2022 urina lysis , dipst ick Unknown Analyte Normal = light yellow Not Available _veronica lara [address] [place], [address], 06/15/2022 09:35:54 06/15/20 22 06/15/2022 urina lysis , dipst ick Unknown Analyte Normal = clear Not Available _veronica lara [address], [place], [address], 06/15/2022 09:35:54 06/15/20 22 06/15/2022 urina lysis , dipst ick Unknown Analyte Normal = negati ve Not Available _veronica lara [address] [place], [address], 06/15/2022 09:35:54 06/15/20 22 06/15/2022 urina lysis , dipst ick Unknown Analyte Normal = Negati ve Not Available 2099veronica lara [address], [place], [address], 06/15/2022 09:35:54 06/15/20 22 06/15/2022 urina lysis , dipst ick Unknown Analyte Normal = Negati ve Not Available 2099veronica lara [address], [place], [address], 06/15/2022 09:35:54 06/15/20 22 06/15/2022 urina lysis , dipst ick Unknown Analyte Normal = 1.010, 1.015, 1.020 Not Available [facility] [address], [place], [address], 06/15/2022 09:35:54 06/15/20 22 06/15/2022 urina lysis , dipst ick Unknown Analyte Normal = Negati ve Not Available 2099veronica lara [address], [place], [address], 06/15/2022 09:35:54 06/15/20 22 06/15/2022 urina lysis , dipst ick Unknown Analyte Normal = 6.5, 7.0, 7.5, 8.0 Not Available [facility] [address], [place], [address], 06/15/2022 09:35:54 06/15/20 22 06/15/2022 urina lysis , dipst ick Unknown Analyte Normal = Negati ve Not Available [facility] [address], [place], [address], 06/15/2022 09:35:54 12/06/15/2022 urina lysis , dipst ick Unknown Analyte Normal = 0.2, 1.0 Not Available 2099veronica lara [address], [place], [address], 06/15/2022 09:35:54 06/15/20 22 06/15/2022 urina lysis , dipst ick Unknown Analyte Normal = Negati ve Not Available 2099veronica lara [address], [place], [address], 06/15/2022 09:35:54 06/15/20 22 06/15/2022 urina lysis , dipst ick Unknown Analyte Normal = Negati ve Not Available 2099veronica lara [address], [place], [address], 06/15/2022 09:35:54 06/15/20 22 06/15/2022 urina lysis , dipst ick Unknown Analyte Yellow Not Available dominic [address], [place], [address], 06/15/2022 09:35:54 06/15/20 22 06/15/2022 urina lysis , dipst ick Unknown Analyte Slight ly Cloudy Not Available veronica lara [address], [place], [address], 06/15/2022 09:35:54 06/15/20 22 06/15/2022 urina lysis , dipst ick Unknown Analyte Negati ve Not Available 2099veronica lara [address], [place], [address], 06/15/2022 09:35:54 06/15/20 22 06/15/2022 urina lysis , dipst ick Unknown Analyte Small Not Available [address], [place], [address], 06/15/2022 09:35:54 06/15/20 22 06/15/2022 urina lysis , dipst ick Unknown Analyte Negati ve Not Available veronica pe [facility], [place], [address], 06/15/2022 09:35:54 06/15/20 22 06/15/2022 urina lysis , dipst ick Unknown Analyte 1.030 Not Available dominic [address], [place], [address], 06/15/2022 09:35:54 06/15/20 22 06/15/2022 urina lysis , dipst ick Unknown Analyte Large Not Available dominic [address], [place], [address], 06/15/2022 09:35:54 06/15/20 22 06/15/2022 urina lysis , dipst ick Unknown Analyte 6.0 Not Available dominic [address], [place], [address], 06/15/2022 09:35:54 06/15/20 22 06/15/2022 urina lysis , dipst ick Unknown Analyte 300 mg/dL Not Available veronica pe [address], [place], [address], 06/15/2022 09:35:54 06/15/20 22 06/15/2022 urina lysis , dipst ick Unknown Analyte 0.2 E.U./d L Not Available navao pe [address], [place], [address], 06/15/2022 09:35:54 06/15/20 22 06/15/2022 urina lysis , dipst ick Unknown Analyte Negati ve Not Available veronica pe [address], [place], [address], 06/15/2022 09:35:54 06/15/20 22 06/15/2022 urina lysis , dipst ick Unknown Analyte Large Not Available [facility] [address] [place] [address], [place], [address], 06/15/2022 09:35:54 Result Notes None recorded. Problems Name Problem SNOMED Code Status Onset Date Resolution Date Notes Provider Name and Address Organization Details Recorded Time Hypertensive disorder 44978049 Active 2021 Yen [place] null, [place] - [facility] 2 09:37:35 Hypothyroidism 93727573 Active 2021 Yen Chela null, [place] - [facility] 2 09:37:44 Problem Notes None recorded. Procedures Surgical History Date Name Laterality Status Provider Name and Address Organization Details Recorded Time 06/14/20 19 Total knee arthroplasty completed Yen Chela PA - [facility] 06/15/2022 09:38:09 Imaging Results None recorded. Procedure Notes None recorded. Medical Equipment None Reported. Allergies Allergen ID Allergen Name Allergen Category Reaction Reaction Severity Criticality Documentation Date Start Date Code Code System Note Provider Name and Address Organization Details Recorded Time 05974 latex environme nt,medica tion hives Not available low 06/15/2022 59987 91 RxNorm Yen Chela null, [place] - [facility] 2 09:37:11 Medications Name Sig Start Date Stop Date Status Note LastModified by Organization Details LastModified Time meloxicam 15 mg tablet TAKE 1 TABLET BY MOUTH EVERY DAY WITH FOOD 06/15 completed Not Available Not Available Not Available lisinopril 20 mg tablet TAKE 1 TABLET BY MOUTH EVERY DAY active Not Available Not Available No t Available amlodipine 2.5 mg tablet TAKE 1 TABLET BY MOUTH EVERY DAY active Not Available Not Available No t Available acetaminoph en 300 mg-codeine 30 mg tablet TAKE 1 TABLET BY MOUTH EVERY 8 HOURS NEEDED FOR LEFT KNEE PAIN 06/15 completed Not Available Not Available Not Available amoxicillin 875 mg tablet TAKE 1 TABLET (ORAL) 2 TIMES PER DAY FOR 10 DAYS FOR INFECTION 12/31 /2022 completed Not Available Not Available Not Available levothyroxi ne 50 mcg tablet TAKE 1 TABLET BY MOUTH EVERY DAY active Not Available Not Available No t Available cephalexin 500 mg capsule Take 1 capsule every 8 hours by oral route with meals for 7 days. 2021 active Not Available Not Available Not Avai lable hydrochloro thiazide 25 mg tablet TAKE 1 TABLET BY MOUTH EVERY DAY active Not Available Not Available No t Available azithromyci n 500 mg tablet TAKE 1 TABLET (500 MG TOTAL) BY MOUTH DAILY. 06/15 completed Not Available Not Available Not Available Vitals Date Recorded Body height Body mass index (BMI) Body weight Oxygen saturation Heart rate Respiratory rate Body temperature Systolic And Diastolic Provider Name and Address Organization Details Last Updated DateTime 2 157.48 cm 36.4 kg/m2 72314.8 8 g 97 % 92 /min 18 /min 97.6 [degF] 112/66 mm[Hg] Yen [place] [facility] 09:36:34 Social History Question Answer Notes LastModified by [employer] Details LastModified Time Tobacco Smoking Status Never Smoker Yen wilkins [facility] 06/15/2022 09:37:55 Have You Had Direct Contact, Or Contact During Intimacy, With Monkeypox Rash, Scabs, Or Body Fluids From A Person With Monkeypox? No Information not available 06/15/2022 Have You Recently Traveled Abroad? No Information not available 06/15/2022 Sex: Unknown Functional Status Question Answer Note LastModified by [employer] Details LastModified Time Do you use any illicit or recreational drugs? No Information not available 06/15/2022 Do you or have you ever used any other forms of tobacco or nicotine? No Information not available 06/15/2022 What is your level of alcohol consumption? None Information not available 06/15/2022 Mental Status None recorded. Family History Relationship Description Onset Age of this Age Resolved Age Notes LastModified by Organization Details LastModified Time Father No current problems or disability Not available 06/15 09:37:48 Mother No current problems or disability Not available 06/15 09:37:48 Medical History No medical history recorded. Gynecological HistoryNo gynecological history recorded. Obstetrics History GPAL:G 0 P 0 0 0 0 Immunizations Vaccine Type Date Status Note Provider Nam e and Address Organization Details Recorded Time COVID-19, mRNA, LNP-S, PF, 30 mcg/0.3 mL dose 03/19/2021 completed Yen [place] null, [place] - [facility] 06/15/2022 09:36:59 COVID-19, mRNA, LNP-S, PF, 30 mcg/0.3 mL dose 08/07/2020 completed Yen Chela null, PA - [facility] 06/15/2022 09:36:59 COVID-19, mRNA, LNP-S, PF, 30 mcg/0.3 mL dose, robyn-sucrose 09/26/2021 completed Yen Chela null, PA - [facility] 06/15/2022 09:36:59 COVID-19, mRNA, LNP-S, PF, 30 mcg/0.3 mL dose 08/29/2020 completed Yen Chela null, PA - [facility] 06/15/2022 09:36:59 Influenza, high-dose, quadrivalent, PF 04/02/2022 completed Yen [place] null, [place] - [facility] 06/15/2022 09:36:59 Past Encounters Encounter ID Performer Location Encounter Start Date Encounter Closed Date Diagnosis/Indication Diagnosis SNOMED-CT Code Diagnosis ICD10 Code Diagnosis IMO Codes Diagnosis Note [id number] [facility] [address] [place] [address] 12/14/2016 11:27:02 12/14/2016 11:53:06 [id number] [address] [address] [place] [address] 06/21/2017 12:29:24 06/21/2017 13:42:49 [id number] [address] [address] [place] [address] 09/20/2018 09:49:49 09/20/2018 10:30:27 [id number] [facility] [address] [place] [address] 10/03/2018 11:29:13 10/03/2018 11:49:01 [id number] [facility] [address] [place] [address] 02/15/2020 09:07:49 02/15/2020 10:36:42 [id number] [facility] [address] [address] [place] [address] 11/15/2017 08:58:03 11/15/2017 10:06:21 [id number] [address] [address] [place] [address] 10/19/2017 08:56:42 10/19/2017 09:29:24 [id number] Wil Downey, [employer] [facility] [address] [place] [address] 06/15/2022 09:07:11 06/15/2022 10:57:05 Acute urinary tract infection 634525137 N39.0 Health Concerns Section Related Observation LastModified by Organization Detai ls LastModified Time None Recorded Concern Status LastModified by Organization Details LastModified Time None Recorded Advance Directives Directive None Recorded Payers Insurance Date Sequence Insurance Name Policy Number Policy Jurado Covered Member ID Jurado Member ID Guarantor Name 06/15/2022 1 [place]: [employer] Fabienne Moreno Heidi [id number] Fabienne Gordon 06/15/2022 2 [facility] Fabienne Josh Heidi [id number] Fabienne Gordon 06/15/2022 [employer] - SPECIALITY CLAIMS (MEDICARE DME REGION A) Fabienne L Heidi [id number] 0 [id number] 20 Fabienne Gordon Notes Date Note Type Note Provider Name and Address Organization Details Recorded Time 06/15/2022 text/html Urinary Complain t FemaleReported by Patienturinary frequency and urgency x 2 days. Wil Downey NP [address] [place], [address], [place] - [facility] 06/15/2022 10:57:33 OBGyn Episode No OBEpisode recorded.
--- OUTSIDE RECORDS SUMMARY | 2025-06-01 08:41 | XMS_ITS | Encounter Summary ---
Author Organization [facility] Address [address] [place] [address] Phone Care Team Providers Care Reverse Unit Operator Name Role Phone Natalie Palacio MD Unavailable Rafiq Castle MD Unavailable Scott Colón MD Unavailable [phone] Nneka Lay PACKING ROOM SUPERVISOR Unavailable [phone] Heaven Roth PACKING ROOM SUPERVISOR Unavailable [phone] Samina Reveles MD Unavailable Heaven Roth PACKING ROOM SUPERVISOR Primary Care Provider Rafiq Castle MD Unavailable [phone] Rafiq Castle MD Unavailable [phone] Rafiq Castle MD Unavailable [phone] Rafiq Castle MD Unavailable [phone] Stacia Rodriguez RIGGER THIRD Primary Care Provider [phone] iDxie Ballard PA-C Primary Care Provider Encounter Details Date Type Department Care Team (Late st Contact Info) Description 06/24/2018 Ancillary Orders [facility] [address] [place] [address] Heaven Roth, PACKING ROOM SUPERVISOR [address] [place] [address] Breast screening Social History Tobacco Use Types [...] 06/14/2025 8:30 AM EST Procedure visit [facility] [address] [place] [address] Roro Sifuentes MD [address] [place] [address] Orthopedics & Sports Medicine, [place] [address] [email or web address] 07/11/2025 10:00 AM EST Office Visit [facility] [address] [place] [address] Jody Pollard PA-C [address] [place] [address] Orthopedics & Sports [facility], [place] [address] [email or web address] 09/01/2025 11:20 AM EDT Office Visit [facility] [address] [place] [address] Dixie Ballard PA-C [address] [place] [address] [email or web address] 10/09/2025 9:15 AM EDT Appointment [facility], Bone Density - [address] [address] Dixie Ballard PA-C [address] [place] [address] [email or web address] documented as of this encounter Results * BI MAMMOGRAM SCREENING WITH TOMOSYNTHESIS WITH CAD (BILATERAL) (07/21/2018 10:49 AM EST) Anatomical Region Laterality Modality Breast Left, Breast Right, Breast Bilateral Bila teral Mammography 07/21/2018 12:3 7 PM EST Impressions 07/21/2018 12:40 PM EST Stable appearance relative to prior imaging. No findings suggestive of malignancy are seen. BI-RADS CATEGORY: 2 - Benign finding. DENSITY: There are scattered fibroglandular densities. POS - [id number] Narrative 07/21/2018 12:40 PM EST Full-field digital mammography is obtained with computer-aided detection. Comparison with prior imaging from 07/17/2017 is made with older imaging dating back as far as 04/03/2010 also reviewed. There is scattered fibroglandular density evident in the breasts. In addition to 2-D C view imaging, tomosynthesis images are obtained in two projections of each breast. There are scattered bilateral punctate and secretory calcifications which are unchanged.. No dominant soft tissue mass of concern, suspicious cluster of calcifications, significant interval skin changes, or architectural distortion is identified. Procedure Note Lm South MD - 07/21/2018 Full-field digital mammography is obtained with computer-aided detection.Comparison with prior imaging from 07/17/2017 is made with older imagingdating back as far as 04/03/2010 also reviewed. There is scattered fibroglandular density evident in the breasts. Inaddition to 2-D C view imaging, tomosynthesis images are obtained in twoprojections of each breast. There are scattered bilateral punctate and secretory calcifications whichare unchanged.. No dominant soft tissue mass of concern, suspiciouscluster of calcifications, significant interval skin changes, orarchitectural distortion is identified. IMPRESSION: Stable appearance relative to prior imaging. No findings suggestive ofmalignancy are seen. BI-RADS CATEGORY: 2 - Benign finding. DENSITY: There are scattered fibroglandular densities. POS - [id number] Heaven Roth PACKING ROOM SUPERVISOR IMG MG EXAMS Final Result documented in [...] Noted Time PHQ-2 Depression Total Score: 0 11/19/19 18 11:02 AM EDT documented as of this encounter Care Teams Reverse Unit Operator Relationship Specialty Start Date End Date Heaven Roth, PACKING ROOM SUPERVISOR [address] [place] [address] Orthopedics & Sports Medicine, [place] [address] PCP - General 05/12/17 08/19/23 Stacia Rodriguez FNP [address] [place] [address] PCP - General Nurse Practitioner 08/20/23 08/09/24 Dixie Ballard PA-C [address] [place] [address] PCP - General Physician Volleyball Coach 08/10/24 Natalie Palacio MD [address] [place] [address] Historical LMR Provider 04/03/17 12/29/19 Rafiq Castle MD [address] [place] [address] Historical LMR Provider 04/03/17 12/29/19 Scott Colón MD [address] [facility] [address] [place] [address] Historical LMR Provider 04/03/17 12/29/19 Nneka Lay NP [address] [facility] [address] [place] [address] Historical LMR Provider 04/03/17 12/29/19 Heaven Roth NP [address] [facility] [address] [place] [address] Historical LMR Provider 04/03/17 12/29/19 Samina Reveles MD [address] [place] [address] Orthopedics & Sports Medicine, [place] [address] Historical LMR Provider 04/03/17 12/29/19 Rafiq Castle MD [address] [place] [phone] Insurance Assigned Provider 09/13/17 07/04/18 Rafiq Castle MD [address] [place] [address] Insurance Assigned Provider 09/26/18 10/17/18 Rafiq Castle MD [address] [place] [address] [email or web address] Insurance Assigned Provider 09/22/19 06/23/21 Rafiq Castle MD [address] [place] [address] [email or web address] Insurance Assigned Provider 09/20/23 06/21/24 documented as of this encounter Additional Source Comments The information contained in this document represents components of the legal health record. It is not the complete legal health record.[facility]
--- OUTSIDE RECORDS SUMMARY | 2025-06-01 08:42 | XMS_ITS | Encounter Summary ---
Author Organization [facility] Address [address] [place] [address] Phone Care Team Providers Care Licensing Manager Name Role Phone Stacia Rodriguez Primary Care Provider Dixie Ballard PA-C Primary Care Provider Encounter Details Date Type Department Care Team (Late st Contact Info) Description 07/15/2024 Procedure Pass OR Admitting Dept - Virtual Department [address] [place] [address] Social History Tobacco Use Types Packs/Day Years [...] as food, clothing, or medical care? No 07/15/2024 In the past 12 months have y ou been in a relationship with a person who hurts, threatens, or tries to control you? No 07/15/2024 Are you denied basic needs s uch as food, clothing, or medical care? No 07/15/2024 In the past 12 months have y ou been in a relationship with a person who hurts, threatens, or tries to control you? No 07/15/2024 Comments No Sex and Gender Information Value Date Recorded Sex Assigned at Female 07/16/2019 8:53 AM EST Legal Sex Female 10:07 PM EDT Gender Identity Female 07/16/2019 8:53 AM EST Sexual Orientation Straight 07/16/2019 8: 53 AM EST documented as of this encounter Functional Status * Calculated C-SSRS Risk Score (Lifetime/Recent) Answer Date of Assessment Author No Risk Indicated 07/15/2024 2:00 PM EST Rosario Escamilla RN * [place] Suicide Severity Rating Scale (Screener/Recent Self-Report) Question Answer Date of Assessment Author 1. Wish to be (Past 1 Month) No 025 2:00 PM EST Rosario Escamilla RN 2. Non-Specific Active Suici xochitl Thoughts (Past 1 Month) No 07/15/2024 2:00 PM EST Manjinder Escamilla RN 6. Suicidal Behavior (Lifetime) No 2:00 PM EST Rosario Escamilla RN documented as of this encounter Plan of Treatment Upcoming Encounters Date Type Department Care Team (Late st Contact Info) Description 06/14/2025 8:30 AM EST Procedure visit [facility] [address] [address] Roro Sifuentes MD [address] [place] [address] Orthopedics & Sports Medicine, [place] [address] 07/11/2025 10:00 AM EST Office Visit [facility] Orthopedics [facility] Sports [address] [address] Jody Pollard PA-C [address] [place] [address] Orthopedics & Sports [facility], [place] [address] [email or web address] 09/01/2025 11:20 AM EDT Office Visit [facility] Primary Care Clinic [address] [place] [phone] Dixie Ballard PA-C [address] [place], [place] [phone] 10/09/2025 9:15 AM EDT Appointment [facility], Bone [address] [address] Dixie Ballard PA-C [address] [place], [place] [phone] documented as of this encounter Visit Diagnoses Not on filedocumented in this encounter Additional Health Concerns Assessment Noted Time PHQ-2 Depression Total Score: 0 02/20/20 24 1:44 PM EDT documented as of this encounter Care Teams Licensing Manager Relationship Specialty Start Date End Date Michael StaciaCHRISTELLE Guerin [address] [address] [email or web address] PCP - General Nurse Practitioner 08/20/23 08/09/24 Dixie Ballard PA-C [address] [place] [address] [email or web address] PCP - General Physician Cutter In 08/10/24 documented as of this encounter Additional Source Comments The information contained in this document represents components of the legal health record. It is not the complete legal health record.[facility]
--- OUTSIDE RECORDS SUMMARY | 2025-06-01 08:42 | XMS_ITS | Encounter Summary ---
Author Organization [facility] Address [address] [place] [address] [place] [phone] Phone Care Team Providers Care [employer]i Press Operator Name Role Phone Heaven Roth NP Primary Care Provider [phone] Rafiq Castle MD Unavailable [phone] Rafiq Castle MD Unavailable [phone] Stacia Rodriguez PRINT COLOR OPERATOR Primary Care Provider Dixie Ballard PA-C Primary Care Provider Encounter Details Date Type Department Care Team (Late st Contact Info) Description 08/30/2020 Procedure Pass [facility] - [address] [place] [address] Social History Tobacco Use Types Packs/Day Years [...] Description 06/14/2025 8:30 AM EST Procedure visit [facility] [address] [place] [id number] Roro Sifuentes MD [address] [place] [address] [facility], [place], [place] [id number] 07/11/2025 10:00 AM EST Office Visit [facility] [address] [address] Jody Pollard PA-C [address] [place] [address] Orthopedics [facility] Medicine, [place] [address] [email or web address] 09/01/2025 11:20 AM EDT Office Visit [facility] [address] [place] [address] Dixie Ballard PA-C [address] [place] [address] 10/09/2025 9:15 AM EDT Appointment [address] [address] Dixie Ballard PA-C [address] [place] [address] documented as of this encounter Visit Diagnoses Not on filedocumented in this encounter Additional Health Concerns Infection Onset Date Last Indicated Resolved Time CoV-Exposed Comment:Recent close contact documented in the COVID-19 PCR/PRO order 09/18/2020 09/20/2020 10/03/2020 1:23 AM E DT CoV-Risk 03/13/2021 03/14/2021 03/23/2021 1:26 AM EDT Assessment Noted Time PHQ-2 Depression Total Score: 0 11/05/19 9:35 AM EDT documented as of this encounter Care Teams [employer]i Press Operator Relationship Specialty Start Date End Date Heaven Roth, NOVELTY CHAIN MAKER PCP - General 05/12/17 08/19/23 Stacia Rodriguez FNP [address] [address] PCP - General Nurse Practitioner 08/20/23 08/09/24 Dixie Ballard PA-C [address] [place] [address] PCP - General Physician Engineering Document Control Clerk 08/10/24 Rafiq Castle MD [address] [place] [address] Insurance Assigned Provider 09/22/19 06/23/21 Rafiq Castle MD [address] [place] [address] Insurance Assigned Provider 09/20/23 06/21/24 documented as of this encounter Additional Source Comments The information contained in this document represents components of the legal health record. It is not the complete legal health record.[facility]
== END 2025-06-01 09:18 | disposition home or self-care (01) ==
PROVIDERS: PCP Registered Nurse; Visit Provider Physician Assistant
DX: J06.9 Acute upper respiratory infection, unspecified (principal); Z20.89 Contact with and (suspected) exposure to other communicable diseases

== ENCOUNTER → 2025-06-01 08:28 | Outpatient (BNVA) | payer MEDICARE, OTHER, SELFPAY | PROVIDERS: PCP Registered Nurse; Visit Provider Physician Assistant | DX: R05.9 Cough, unspecified (principal); J06.9 Acute upper respiratory infection, unspecified; Z20.89 Contact with and (suspected) exposure to other communicable diseases | CPT/HCPCS: 99212 ==